=== PATIENT | male | born 1985 | race Caucasian/White ===

== ENCOUNTER 2016-09-22 01:16 | Inpatient (IN) | payer OTHER ==
[~2016-09-22] VITALS: Ht 182.9 cm; Wt 138.4 kg
[2016-09-22] VITALS (13 sets, daily range): BP systolic 115–156; BP diastolic 60–91
--- NOTE | 2016-09-22 07:57 | DIAGNOSTIC IMAGING REPORT ---
PROCEDURE: XR CHEST 1 VIEW INDICATION: SILVA AND HTN TECHNIQUE: Single view chest. 03:34 hours COMPARISON: None. FINDINGS: The cardiomediastinal contour and central vasculature are normal. Low lung volumes. The lungs are clear without focal consolidation, pleural effusion or pneumothorax. The osseous structures are intact. IMPRESSION: 1. No evidence of acute cardiopulmonary disease.
--- NOTE | 2016-09-22 07:57 | DIAGNOSTIC IMAGING REPORT ---
PROCEDURE: XR CHEST 1 VIEW INDICATION: SILAV AND HTN TECHNIQUE: Single view chest. 03:34 hours COMPARISON: None. FINDINGS: The cardiomediastinal contour and central vasculature are normal. Low lung volumes. The lungs are clear without focal consolidation, pleural effusion or pneumothorax. The osseous structures are intact. IMPRESSION: 1. No evidence of acute cardiopulmonary disease.
--- NOTE | 2016-09-22 08:37 | DIAGNOSTIC IMAGING REPORT ---
PROCEDURE: CT HEAD WITHOUT CONTRAST INDICATION: HEADACHE TECHNIQUE: Axial CT images were acquired through the head. Coronal and sagittal reformations were created. COMPARISON: None. FINDINGS: No intracranial hemorrhage or extraaxial fluid collections. Ventricles are normal in size, shape and position. There is no mass, mass effect or midline shift. The huitron-white matter differentiation is normal. There is no edema. The calvarium is intact. The paranasal sinuses and mastoid air cells are normally aerated. The extracranial soft tissues and orbits are normal. IMPRESSION: 1. No CT evidence of acute intracranial process. 2. Preliminary report by Dr. Tony Sebastian of [facility] radiology. All CT scans at this facility use dose modulation, iterative reconstruction, and/or weight-based dosing when appropriate to reduce radiation dose to as low as reasonably achievable.
--- NOTE | 2016-09-22 10:16 | ED ORDER SUMMARY ---
..... Patient: STACY FABIAN OrderSheet [facility] VisitID: [id number] [place] [address] 31y, M Registration Date/Time: 09/22/2016 ORDER SHEET Weight: 131.5 kg (stated) Allergies: No Known Drug Allergy GENERAL ORDERS: Chest 1V Urgent (03:09/22/2016 Jaret PARK) (Ack 3:33 CHagelvis ER Bus And Trolley Inspecting Dispatcher) (3:33 CHagelvis ER Bus And Trolley Inspecting Dispatcher) Signal Worker (Continuous) (03:09/22/2016 Jaret PARK) (3:38 JQuivey R.N.) CBC w Diff Urgent (:09/22/2016 Jaret PARK) (Ack 3:33 CHagelvis ER Bus And Trolley Inspecting Dispatcher) (3:34 JQuivey R.N.) CMP Urgent (03:09/22/2016 Jaret PARK) (Ack 3:33 Izaiah ER Bus And Trolley Inspecting Dispatcher) (3:34 JQuivey R.N.) UA-Culture if indicated Urgent (03:09/22/2016 Jaret PARK) (Ack 3:33 Izaiah ER Bus And Trolley Inspecting Dispatcher) (5:25 JQuivey R.N.) Amylase Urgent (03:09/22/2016 Jaret PARK) (Ack 3:33 CHagelvis ER Bus And Trolley Inspecting Dispatcher) (3:34 JQuivey R.N.) Lipase Urgent (03:09/22/2016 Jaert PARK) (Ack 3:33 Izaiah ER Bus And Trolley Inspecting Dispatcher) (3:34 JQuivey R.N.) CPK Urgent (03:09/22/2016 Jaret PARK) (Ack 3:33 Izaiah ER Bus And Trolley Inspecting Dispatcher) (3:34 JQuivey R.N.) Troponin-I Urgent (03:09/22/2016 Jaret PARK) (Ack 3:33 Izaiah ER Bus And Trolley Inspecting Dispatcher) (3:34 JQuivey R.N.) Oxygen (2 L/min) (NC) (03:09/22/2016 Jaret PARK) (3:37 JQuivey R.N.) Pulse oximeter (03:09/22/2016 Jaret PARK) (3:37 JQuivey R.N.) EKG - ER Stat (03:22 09/22/2016 Jaret PARK) (Ack 3:33 CHagerty ER Bus And Trolley Inspecting Dispatcher) (3:37 JQuivey R.N.) CT Head wo Cont Urgent (04:15 09/22/2016 Jaret PARK) (Ack 4:16 CHagerty ER Bus And Trolley Inspecting Dispatcher) (5:26 JQuivey R.N.) CSF, Cell Count Urgent (07:50 09/22/2016 Jaret PARK) (Ack 7:56 PWeiler ER Tech1) (9:17 JBoardley R.N.) CSF, Culture Urgent (07:50 09/22/2016 Jaret PARK) (Ack 7:56 PWeiler ER Tech1) (9:17 JBoardley R.N.) CSF, Glucose Urgent (07:50 09/22/2016 Jaret PARK) (Ack 7:56 PWeiler ER Tech1) (9:17 JBoardley R.N.) CSF, Protein Urgent (07:50 09/22/2016 Jraet PARK) (Ack 7:56 PWeiler ER Tech1) (9:18 JBoardley R.N.) Blood Culture (No) (N/A) Urgent (09:37 09/22/2016 JBoardlemoody R.N. verbal order read back to Jaret PARK) (Ack 9:39 PWeiler ER Tech1) (9:49 LWhalen R.N.) Lactate, Serum Urgent (09:38 09/22/2016 JBoarlarry R.N. verbal order read back to Jaret PARK) (Ack 9:39 PWeitomás ER Tech1) (9:49 LWhalen R.N.) MEDICATION ORDERS: Zofran ODT PO 4 mg (NOW) (01:40 09/22/2016 VioletaQuivey R.N. per protocol) (1:42 JQuivey R.N.) Metoprolol PO 50 mg (HIGH ALERT MEDICATION, NOW) (03:47 09/22/2016 Jaret PARK) (Ack 3:47 JQuivey R.N.) (3:58 JQuivey R.N.) IV FLUIDS: IV NS : initial bolus 500 mL (1000 mL/hr), then 125 mL/hr for 4h (NOW); Urgent (02:05 09/22/2016 Jaret PARK) (2:16 JQuivey R.N.) Dilaudid IV 1 mg (HIGH ALERT MEDICATION, NOW) (02:05 09/22/2016 Jaret PARK) (2:18 JQuivey R.N.) Zofran IV 4 mg (NOW) (02:16 09/22/2016 JQuivey R.N. verbal order read back to Jaret PARK) (2:17 JQuivey R.N.) IV NS : initial bolus 500 mL (1000 mL/hr), then 125 mL/hr for 4h (NOW); Urgent (03:22 09/22/2016 Jaret PARK) (Cancelled: Duplicate Order3:34 JQuivey R.N.) IV Saline Lock (03:22 09/22/2016 Jaret PARK) (3:35 JQuivey R.N.) Metoprolol IV 2.5 mg (HIGH ALERT MEDICATION, NOW) (03:32 09/22/2016 Jaret PARK) (3:40 JQuivey R.N.) Dilaudid IV 0.5 mg (NOW) (03:44 09/22/2016 JQuivey R.N. verbal order read back to Jaret PARK) (3:44 JQuivey R.N.) Dilaudid IV 0.5 mg (NOW) (04:01 09/22/2016 VioletaQuivey R.N. verbal order read back to Jaret PARK) (4:02 JQuivey R.N.) Toradol IV 30 mg (NOW) (04:17 09/22/2016 Jaret PARK) (4:20 JQuivey R.N.) Dilaudid IV 0.5 mg (NOW) (04:21 09/22/2016 VioletaQuivey R.N. verbal order read back to Jaret PARK) (4:21 JQuivey R.N.) Dilaudid IV 0.5 mg (NOW) (05:26 09/22/2016 VioletaQuivey R.N. verbal order read back to Jaret PARK) (5:26 Nkechi Christopher) Dilaudid IV 1 mg (NOW) (06:56 09/22/2016 Nkechi Christopher verbal order read back to Jaret PARK) (6:58 Nkechi Christopher) Dilaudid IV 1 mg (NOW) (09:34 09/22/2016 Jaret PARK) (9:48 Pradeep Christopher) Ceftriaxone IV 2 gm/50mL (NOW) (09:36 09/22/2016 Marc Christopher verbal order read back to Jaret PARK) (9:49 Pradeep Christopher) Zofran IV 4 mg (NOW) (11:49 09/22/2016 Nighat Christopher verbal order read back to Jaret PARK) (12:19 Nighat Christopher) ORDER SHEET NOTES: [Electronically signed by Jesse Rodríguez R.N. (15:45 09/22/2016)] [Electronically signed by Jairo Faulkner MD (10:41 09/23/2016)] [Electronically locked/signed by Jesse Rodríguez R.N. (15:45 09/22/2016)]
--- NOTE | 2016-09-22 10:16 | ED ORDER SUMMARY ---
..... Patient: STACY FABIAN OrderSheet [facility] VisitID: [id number] [place] [address] 31y, M Registration Date/Time: 09/22/2016 ORDER SHEET Weight: 131.5 kg (stated) Allergies: No Known Drug Allergy GENERAL ORDERS: Chest 1V Urgent (03:09/22/2016 Jaret PARK) (Ack 3:33 CHagelvis ER Oxyacetylene Welder) (3:33 CHagelvis ER Oxyacetylene Welder) Plumbing Service Technician (Continuous) (03:09/22/2016 Jaret PARK) (3:38 JQuivey R.N.) CBC w Diff Urgent (:09/22/2016 Jaret PARK) (Ack 3:33 CHagelvis ER Oxyacetylene Welder) (3:34 JQuivey R.N.) CMP Urgent (03:09/22/2016 Jaret PARK) (Ack 3:33 Izaiah ER Oxyacetylene Welder) (3:34 JQuivey R.N.) UA-Culture if indicated Urgent (03:09/22/2016 Jaret PARK) (Ack 3:33 Izaiah ER Oxyacetylene Welder) (5:25 JQuivey R.N.) Amylase Urgent (03:09/22/2016 Jaret PARK) (Ack 3:33 CHagelvis ER Oxyacetylene Welder) (3:34 JQuivey R.N.) Lipase Urgent (03:09/22/2016 Jaret PARK) (Ack 3:33 Izaiah ER Oxyacetylene Welder) (3:34 JQuivey R.N.) CPK Urgent (03:09/22/2016 Jaret PARK) (Ack 3:33 Izaiah ER Oxyacetylene Welder) (3:34 JQuivey R.N.) Troponin-I Urgent (03:09/22/2016 Jaret PARK) (Ack 3:33 Izaiah ER Oxyacetylene Welder) (3:34 JQuivey R.N.) Oxygen (2 L/min) (NC) (03:09/22/2016 Jaret PARK) (3:37 JQuivey R.N.) Pulse oximeter (03:09/22/2016 Jaret PARK) (3:37 JQuivey R.N.) EKG - ER Stat (03:22 09/22/2016 Jaret PARK) (Ack 3:33 CHagerty ER Oxyacetylene Welder) (3:37 JQuivey R.N.) CT Head wo Cont Urgent (04:15 09/22/2016 Jaret PARK) (Ack 4:16 CHagerty ER Oxyacetylene Welder) (5:26 JQuivey R.N.) CSF, Cell Count Urgent (07:50 09/22/2016 Jaret PARK) (Ack 7:56 PWeiler ER Tech1) (9:17 JBoardley R.N.) CSF, Culture Urgent (07:50 09/22/2016 Jaret PARK) (Ack 7:56 PWeiler ER Tech1) (9:17 JBoardley R.N.) CSF, Glucose Urgent (07:50 09/22/2016 Jaret PARK) (Ack 7:56 PWeiler ER Tech1) (9:17 JBoardley R.N.) CSF, Protein Urgent (07:50 09/22/2016 Jaret PARK) (Ack 7:56 PWeiler ER Tech1) (9:18 JBoardley R.N.) Blood Culture (No) (N/A) Urgent (09:37 09/22/2016 JBoardlemoody R.N. verbal order read back to Jaret PARK) (Ack 9:39 PWeiler ER Tech1) (9:49 LWhalen R.N.) Lactate, Serum Urgent (09:38 09/22/2016 JBoarlarry R.N. verbal order read back to Jaret PARK) (Ack 9:39 PWeitomás ER Tech1) (9:49 LWhalen R.N.) MEDICATION ORDERS: Zofran ODT PO 4 mg (NOW) (01:40 09/22/2016 VioletaQuivey R.N. per protocol) (1:42 JQuivey R.N.) Metoprolol PO 50 mg (HIGH ALERT MEDICATION, NOW) (03:47 09/22/2016 Jaret PARK) (Ack 3:47 JQuivey R.N.) (3:58 JQuivey R.N.) IV FLUIDS: IV NS : initial bolus 500 mL (1000 mL/hr), then 125 mL/hr for 4h (NOW); Urgent (02:05 09/22/2016 Jaret PARK) (2:16 JQuivey R.N.) Dilaudid IV 1 mg (HIGH ALERT MEDICATION, NOW) (02:05 09/22/2016 Jaret PARK) (2:18 JQuivey R.N.) Zofran IV 4 mg (NOW) (02:16 09/22/2016 JQuivey R.N. verbal order read back to Jaret PARK) (2:17 JQuivey R.N.) IV NS : initial bolus 500 mL (1000 mL/hr), then 125 mL/hr for 4h (NOW); Urgent (03:22 09/22/2016 Jaret PARK) (Cancelled: Duplicate Order3:34 JQuivey R.N.) IV Saline Lock (03:22 09/22/2016 Jaret PARK) (3:35 JQuivey R.N.) Metoprolol IV 2.5 mg (HIGH ALERT MEDICATION, NOW) (03:32 09/22/2016 Jaret PARK) (3:40 JQuivey R.N.) Dilaudid IV 0.5 mg (NOW) (03:44 09/22/2016 JQuivey R.N. verbal order read back to Jaret PARK) (3:44 JQuivey R.N.) Dilaudid IV 0.5 mg (NOW) (04:01 09/22/2016 VioletaQuivey R.N. verbal order read back to Jaret PARK) (4:02 JQuivey R.N.) Toradol IV 30 mg (NOW) (04:17 09/22/2016 Jaret PARK) (4:20 JQuivey R.N.) Dilaudid IV 0.5 mg (NOW) (04:21 09/22/2016 VioletaQuivey R.N. verbal order read back to Jaret PARK) (4:21 JQuivey R.N.) Dilaudid IV 0.5 mg (NOW) (05:26 09/22/2016 VioletaQuivey R.N. verbal order read back to Jaret PARK) (5:26 Nkechi Christopher) Dilaudid IV 1 mg (NOW) (06:56 09/22/2016 Nkechi Christopher verbal order read back to Jaret PARK) (6:58 Nkechi Christopher) Dilaudid IV 1 mg (NOW) (09:34 09/22/2016 Jaret PARK) (9:48 Pradeep Christopher) Ceftriaxone IV 2 gm/50mL (NOW) (09:36 09/22/2016 Marc Christopher verbal order read back to Jaret PARK) (9:49 Pradeep Christopher) Zofran IV 4 mg (NOW) (11:49 09/22/2016 Nighat Christopher verbal order read back to Jaret PARK) (12:19 Nighat Christopher) ORDER SHEET NOTES: [Electronically signed by Jesse Rodríguez R.N. (15:45 09/22/2016)] [Electronically signed by Jairo Faulkner MD (10:41 09/23/2016)] [Electronically locked/signed by Jesse Rodríguez R.N. (15:45 09/22/2016)]
--- NOTE | 2016-09-22 10:16 | ED CLINICAL REPORT ---
Clinical Report - Physicians/Mid Levels [facility] [address] [place] [address] 09/22/2016 1:18 Patient: STACY FABIAN Time Seen: 02:04. Arrived- By private vehicle. Historian- patient. HISTORY OF PRESENT ILLNESS Chief Complaint: HEADACHE. Is still present and now worse. This started about 30 hours ago. It was abrupt in onset and has been constant. Onset during light activity. It is described as "pain", pressure, throbbing and sharp. Quality described as unlike previous headaches. Described as a global headache and has had neck pain. At its maximum, severity described as 10 / 10. When seen in the E.D., severity described as 7 / 10. The patient has had blurred vision, photophobia and nausea. No numbness, weakness or vomiting. REVIEW OF SYSTEMS The patient has had chills and experienced sweats. No fever, calf pain, chest pain, cough or difficulty breathing. No pedal edema, palpitations, abdominal pain, constipation or diarrhea. No vomiting or urinary problems. All systems otherwise negative, except as recorded above. PAST HISTORY PCP - JALIL Ayala. No history of sinus problems. Problems: Obstructive Sleep Apnea. Hypertension. Migraine Headache. Additional Surgeries: Adenoidectomy. Surgery for compartment syndrome. Tonsillectomy. Medications: None. Allergies: No Known Drug Allergy. SOCIAL HISTORY Never smoker. Occasional alcohol use. No drug use. Residence: [place]. FAMILY HISTORY Diabetes in grandparent. ADDITIONAL NOTES The nursing notes have been reviewed. PHYSICAL EXAM Vital Signs: 09/22/2016 01:32 BP: 167/111. HR: 102. RR: 17. O2 saturation: 96%. Temp: 98.7 F. Pain level now: 10/10. Have been reviewed. Appearance: Alert. Appears to be in pain. He is morbidly obese. Eyes: Pupils equal, round and reactive to light. Eyes normal inspection. ENT: Pharynx normal. Neck: Moderate meningeal signs present, as evidenced by neck stiffness and nuchal rigidity. Negative Kernig's sign. Normal inspection. No carotid bruit. CVS: Normal heart rate and rhythm. Heart sounds normal. Respiratory: No respiratory distress. Breath sounds normal. Abdomen: Soft and nontender. No organomegaly. Skin: Skin warm and dry. Extremities: Extremities exhibit normal ROM. Neuro: Oriented X 3. Alert. Speech normal. Cranial nerves normal (as tested). No cerebellar findings. No motor deficit. No sensory deficit. LABS, X-RAYS, AND EKG EKG: Rate: 86. Q waves in lead V2 and V3. Prior EKG unavailable. The study has been independently viewed by me. Chest X-ray: Moderately elevated hemidiaphragm on the right. The X-rays were independently viewed by me. CT Head: No acute changes. The study was interpreted by the radiologist and contemporaneously by me. Laboratory Tests: CBC w Diff: (TERRELL: 09/23/2016 05:20) ( [facility] Final results Test Result Flag Units (Reference) WHITE BLOOD COUNT 11.3 K/uL (4.5-11.5) RED BLOOD COUNT 4.82 M/uL (4.50-5.90) HEMOGLOBIN 13.3 L gm/dL (13.5-17.5) HEMATOCRIT 39.3 L % (41.0-53.0) MEAN CELL VOLUME 81 fL (80-100) MEAN CORPUSCULAR HGB 28 pg (26-34) MEAN CORPUSCULAR HGB CONC 34 g/dL (31-37) RED CELL DISTRIBUTION WIDTH 14.2 % (11.6-14.8) PLATELET COUNT 227 K/uL (150-400) NEUTROPHIL % 54.9 % (50-75) LYMPH % 36.4 % (25-40) MONO % 6.7 % (3-14) EOSINOPHIL % 1.5 % (0-4) BASOPHIL % 0.5 % (0-2) CMP: (TERRELL: 09/23/2016 05:20) ( [facility] 09/23/2016 05:54) Final results Test Result Flag Units (Reference) GLUCOSE 104 mg/dL (70-110) BUN 12 mg/dL (7-18) CREATININE 1.1 mg/dL (0.6-1.3) Estimated GFR >60 mL/min Estimated GFR- >60 mL/min Note: Persistent reduction over 3 months in eGFR<60 mL/min/1.73 m2 defines CKD. Patients with eGFR values>=60 mL/min/1.73 m2 may also have CKD if evidence ofpersistent proteinuria. Additional information may be foundat www.kidney.org. SODIUM 139 mmol/L (136-145) POTASSIUM 4.1 mmol/L (3.5-5.1) CHLORIDE 104 mmol/L (98-107) CARBON DIOXIDE 29 mmol/L (21-32) CALCIUM 8.0 L mg/dL (8.5-10.1) TOTAL PROTEIN 6.7 g/dL (6.4-8.2) ALBUMIN 3.8 g/dL (3.3-5.0) BILIRUBIN, TOTAL 0.4 mg/dL (0.0-1.0) ALKALINE PHOSPHATASE 46 U/L (46-116) AST (SGOT) 16 U/L (15-37) ALT (SGPT) 46 U/L (12-78) MAGNESIUM 2.2 mg/dL (1.8-2.4) UA-Culture if indicated: (TERRELL: 09/22/2016 05:20) ( [facility] 09/22/2016 05:36) Final results Test Result Flag Units (Reference) URINE COLOR YELLOW URINE APPEARANCE CLEAR URINE GLUCOSE NEGATIVE (NEGATIVE) URINE BILIRUBIN NEGATIVE (NEGATIVE) URINE KETONE NEGATIVE (NEGATIVE) URINE SPECIFIC GRAVITY 1.025 (1.010-1.030) URINE PH 6.0 (5.0-8.0) URINE PROTEIN NEGATIVE (NEGATIVE) URINE UROBILINOGEN 0.2 EU/dL (0.2-1.0) URINE NITRITE NEGATIVE (NEGATIVE) URINE BLOOD NEGATIVE (NEGATIVE) URINE LEUK ESTERASE NEGATIVE (NEGATIVE) URINE RBC 0-1 rbc/hpf (0-1) URINE WBC 0-1 wbc/hpf (0-1) URINE EPITHELIAL CELLS 0-1 EPI/hpf (0-5) URINE BACTERIA NONE SEEN (NONE SEEN) URINE COMMENT CULT NOT INDICATED URINE CULTURES ARE SET-UP BASED ON THE FOLLOWING CRITERIA:POSITIVE NITRITEPOSITIVE LEUKOCYTE ESTERASEGREATER THAN 10 WHITE BLOOD CELLSMODERATE (2+) OR GREATER BACTERIA CBC w Diff: (TERRELL: 09/22/2016 02:15) ( [facility] 09/22/2016 03:30) Final results Test Result Flag Units (Reference) WHITE BLOOD COUNT 11.8 H K/uL (4.5-11.5) RED BLOOD COUNT 5.52 M/uL (4.50-5.90) HEMOGLOBIN 15.1 gm/dL (13.5-17.5) HEMATOCRIT 44.8 % (41.0-53.0) MEAN CELL VOLUME 81 fL (80-100) MEAN CORPUSCULAR HGB 27 pg (26-34) MEAN CORPUSCULAR HGB CONC 34 g/dL (31-37) RED CELL DISTRIBUTION WIDTH 13.9 % (11.6-14.8) PLATELET COUNT 254 K/uL (150-400) NEUTROPHIL % 68.0 % (50-75) LYMPH % 25.5 % (25-40) MONO % 5.5 % (3-14) EOSINOPHIL % 0.7 % (0-4) BASOPHIL % 0.3 % (0-2) Lactate, Serum: (TERRELL: 09/22/2016 09:49) ( [facility] 09/22/2016 10:33) Final results Test Result Flag Units (Reference) LACTIC ACID 0.7 mmol/L (0.4-2.0) CMP: (TERRELL: 09/22/2016 02:15) ( [facility] 09/22/2016 03:41) Final results Test Result Flag Units (Reference) GLUCOSE 128 H mg/dL (70-110) BUN 12 mg/dL (7-18) CREATININE 0.9 mg/dL (0.6-1.3) Estimated GFR >60 mL/min Estimated GFR- >60 mL/min Note: Persistent reduction over 3 months in eGFR<60 mL/min/1.73 m2 defines CKD. Patients with eGFR values>=60 mL/min/1.73 m2 may also have CKD if evidence ofpersistent proteinuria. Additional information may be foundat www.kidney.org. SODIUM 139 mmol/L (136-145) POTASSIUM 3.9 mmol/L (3.5-5.1) CHLORIDE 103 mmol/L (98-107) CARBON DIOXIDE 26 mmol/L (21-32) CALCIUM 8.7 mg/dL (8.5-10.1) TOTAL PROTEIN 7.7 g/dL (6.4-8.2) ALBUMIN 4.6 g/dL (3.3-5.0) BILIRUBIN, TOTAL 0.8 mg/dL (0.0-1.0) ALKALINE PHOSPHATASE 53 U/L (46-116) AST (SGOT) 23 U/L (15-37) ALT (SGPT) 63 U/L (12-78) LIPASE 112 U/L (73-393) AMYLASE 29 U/L (25-115) CPK 86 U/L (24-260) TROPONIN I <0.05 L ng/mL (0.00-1.5) TROPONIN REFERENCE RANGE:<0.1 NEGATIVE0.1-1.5 INDETERMINANT>1.5 POSITIVE CSF, Cell Count: (TERRELL: 09/22/2016 07:44) ( [facility] 09[facility]27[facility] Final results Test Result Flag Units (Reference) CSF GLUCOSE 59 mg/dL (40-75) CSF PROTEIN 69.0 H mg/dL (15-45) CSF TOTAL VOLUME 4.0 CC TUBE # 4 COLOR COLORLESS APPEARANCE CLEAR CSF WBC 72 H WBC/mm3 (0-5) Results called (WBC'S)Person contacted: SANAZ ANN the result read back? YDate: 09/22/16 Time: 920By: LAB.[facility] CSF RBC 1.8 RBC/mm3 (0-5) CSF SEGMENTED NEUTROPHILS 44 H % (0-7) CSF MONONUCLEAR CELLS 56 % (16-98) CSF, Culture: (TERRELL: 09/22/2016 07:44) ( [facility] 09/23/2016 09:53) IP Test Result Flag Units (Reference) GRAM STAIN, CSF DATE: 09/22/16 NO ORGANISMS SEEN: NO ORGANISMS SEEN WHITE BLOOD CELLS: FEW CULTURE, CSF DATE: 09/23/16 NO GROWTH AT:: NO GROWTH AT 1 DAY PRELIM REPORT: PRELIMINARY REPORT #1 . PROGRESS AND PROCEDURES Lumbar Puncture: Time-out completed immediately before the procedure. Lumbar puncture performed by me. Risks, benefits and alternatives were discussed. Consent was obtained from patient. Sterile technique was used. Local lidocaine anesthesia was used. The area was cleansed with Betadine and chlorhexidine. Patient was positioned right side down. A 22g needle was used. No complications observed. Opening pressure- 35 cm H2O. Course of Care: Patient is stable. Discussed case with health care provider (Luis). Patient/family counseled. Old medical records ordered. Old records unavailable. Disposition: Admitted. CLINICAL IMPRESSION Meningitis. (Electronically signed by Jairo Faulkner MD 09/23/2016 10:41)
--- NOTE | 2016-09-22 10:16 | ED NURSING NOTES ---
Clinical Report - Nurses [facility] [address] [place] [address] 09/22/2016 1:18 Patient: STACY FABIAN TRIAGE Triage time 01:32. Acuity: LEVEL 4. Chief Complaint: HEADACHE. 01:37. Alert. SEPSIS SCREEN: Sepsis Screen. Negative (no infection suspected/documented). --01:37 Valeriy Mejia R.N. 01:32 09/22/16. BP: 167/111. HR: 102. RR: 17. O2 saturation: 96% on room air. Temp: 98.7 F (oral). Pain level now: 01/06. --01:37 Valeriy Mejia R.N. Acuity: LEVEL 3. 04:38. --04:38 Valeriy Mejia R.N. Weight: 131.5 kg stated. Height/Length: 72 inches Per Patient. BMI: 39.4. --01:36 Valeriy Mejia R.N. Medications None. --01:35 Valeriy Mejia R.N. Medication/allergy information source: the patient. --01:37 Valeriy Mejia R.N. Allergies No Known Drug Allergy. --01:35 Valeriy Mejia R.N. History Arrived by private vehicle. Historian: patient. Unaccompanied. [facility] physician ([facility]). This started Started Thursday. Onset was gradual. (started like a Migraine now pain is worse). Treatment PUBLIC RELATIONS REPRESENTATIVE: (Exedrin Migraine). PAST MEDICAL HX: Immunizations: up-to-date. SOCIAL HX: Former smoker, end date 2006. Occasional alcohol use. No drug use. No recent travel. No infectious disease exposure. ABUSE ASSESSMENT: No report of abuse. FALL RISK ASSESSMENT: Fall risk assessment completed. No fall risk identified. NUTRITIONAL RISK ASSESSMENT: The nutritional risk assessment revealed no deficiencies. FUNCTIONAL ASSESSMENT: Functional assessment: no impairments noted. LEARNING NEEDS ASSESSMENT: The learning needs assessment revealed no barriers. SKIN INTEGRITY ASSESSMENT: Skin integrity risk assessment completed. No skin integrity risk identified. --01:37 Valeriy Mejia R.N. PROBLEMS: Migraine Headache. --01:36 Valeriy Mejia R.N. ADDITIONAL SURGERIES: Adenoidectomy. Surgery for compartment syndrome. Tonsillectomy. --01:36 Valeriy Mejia R.N. Interventions ID band on patient. To treatment room. --01:37 Valeriy Mejia R.N. PHYSICAL ASSESSMENT 01:38. Ambulatory to room. GENERAL / NEURO / PSYCH: Alert. Oriented X 4. Speech within normal limits. HEENT: No facial asymmetry noted. RESPIRATORY: Respirations not labored. SKIN: Skin is warm and dry. --01:38 Valeriy Mejia R.N. NURSING PROGRESS NOTES 01:38. Head of bed elevated. Two patient identifiers checked. Call light placed in reach. Bed placed in lowest position. Brakes of bed on. Patient ready for evaluation- chart flagged. --01:38 Valeriy Mejia R.N. 01:42 09/22/2016 Zofran ODT (Ondansetron) PO 4 mg given. Allergies verified and confirmed 5 rights. --01:42 Valeriy Mejia R.N. 02:11 09/22/2016 Site #1 started via IV in the right antecubital space with an 20g angiocath, with aseptic technique and good blood return; one attempt. Blood drawn: rainbow set. Labeled in the presence of the patient and sent to the lab. --02:16 Valeriy Mejia R.N. 02:13 09/22/2016 Started bag #1 1000 mL IV Fluids IV NS (Saline); at 1000 mL/hr over 30 minute(s) via site #1 --02:16 Valeriy Mejia R.N. 02:15 09/22/2016 Zofran (Ondansetron HCl) IVP 4 mg given over 2 minute(s) via site #1. Allergies verified and confirmed 5 rights. IV patency established. IV site checked: no pain, redness, or swelling. IV flushed thoroughly pre- and post-medication administration. --02:17 Valeriy Mejia R.N. 02:18 09/22/2016 Dilaudid (HYDROmorphone HCl PF) IVP 1 mg given over 2 minute(s) via site #1. Allergies verified, confirmed 5 rights and sedative warning given to the patient. IV patency established. IV site checked: no pain, redness, or swelling. IV flushed thoroughly pre- and post-medication administration. --02:18 Valeriy Mejia R.N. 02:20. Pulse oximeter placed on patient; monitor alarms on. --02:20 Valeriy Mejia R.N. The patient is calm and resting quietly. GENERAL / NEURO / PSYCH: Alert. Oriented X 4. RESPIRATORY: No respiratory distress. SKIN: Skin is warm and dry. Skin color within normal limits. --03:18 Valeriy Mejia R.N. 03:17 09/22/16. BP: 170/114. HR: 92. RR: 16. O2 saturation: 97% on room air. Pain level now: 11/06. --03:18 Valeriy Mejia R.N. 02:46 09/22/2016 IV Fluids IV NS via IV site #1 Rate Changed: bag #1 decreased to 125 mL/hr via IV pump. IV patency established. IV site checked: no pain, redness, or swelling. IV flushed thoroughly. --03:29 Valeriy Mejia R.N. 03:38. Oxygen administered by nasal cannula at 2 liters. --03:38 Valeriy Mejia R.N. 03:38. earth science teacher and NIBP monitor placed on patient; monitor alarms on. --03:38 Valeriy Mejia R.N. 03:36 09/22/2016 Metoprolol (Metoprolol Tartrate) IVP 2.5 mg given over 3 minute(s) via site #1. --03:40 Valeriy Mejia R.N. 03:41 09/22/16. BP: 159/94. HR: 85. RR: 16. O2 saturation: 100% on nasal cannula at 2 liters/minute. --03:44 Valeriy Mejia R.N. Cardiac rhythm: normal sinus rhythm. --03:44 Valeriy Mejia R.N. 03:42 09/22/2016 Dilaudid (HYDROmorphone HCl PF) IVP 0.5 mg given over 2 minute(s) via site #1. Allergies verified and confirmed 5 rights. IV patency established. IV site checked: no pain, redness, or swelling. IV flushed thoroughly pre- and post-medication administration. --03:44 Valeriy Mejia R.N. 03:56 09/22/2016 Metoprolol PO 50 mg given. Allergies verified and confirmed 5 rights. --03:58 Valeriy Mejia R.N. 04:01 09/22/2016 Dilaudid (HYDROmorphone HCl PF) IVP 0.5 mg given over 2 minute(s) via site #1. Allergies verified and confirmed 5 rights. IV patency established. IV site checked: no pain, redness, or swelling. IV flushed thoroughly pre- and post-medication administration. --04:02 Valeriy Mejia R.N. EKG time: (03:38). EKG was performed by a tech and shown to the ED physician. --04:08 Loreta Rojas 04:17 09/22/2016 Toradol IVP 30 mg given over 2 minute(s) via site #1. Allergies verified and confirmed 5 rights. IV patency established. IV site checked: no pain, redness, or swelling. IV flushed thoroughly pre- and post-medication administration. --04:20 Valeriy Mejia R.N. 04:19 09/22/2016 Dilaudid (HYDROmorphone HCl PF) IVP 0.5 mg given over 2 minute(s) via site #1. Allergies verified and confirmed 5 rights. IV patency established. IV site checked: no pain, redness, or swelling. IV flushed thoroughly pre- and post-medication administration. --04:21 Valeriy Mejia R.N. 04:32. Patient transported to CT by stretcher with tech. --04:40 Valeriy Mejia R.N. 04:39. Patient returned from CT by stretcher with tech. --04:40 Valeriy Mejia R.N. 05:17 Patient to restroom to collect urine sample. --05:17 Valeriy Mejia R.N. 05:20. Patient ID band checked for patient name and birthdate: patient confirmed. Clean catch urine collected with return of josue-colored urine; sample sent to lab for urinalysis. Specimen labeled in the presence of the patient. --05:25 Valeriy Mejia R.N. Cardiac rhythm: normal sinus rhythm. The patient is calm and resting quietly. GENERAL / NEURO / PSYCH: Alert. Oriented X 4. RESPIRATORY: No respiratory distress. SKIN: Skin is warm and dry. Skin color within normal limits. --05:25 Valeriy Mejia R.N. 05:25 09/22/16. BP: 136/90. HR: 66. RR: 13. O2 saturation: 100% on nasal cannula at 2 liters/minute. Pain level now: 07/07. --05:25 Valeriy Mejia R.N. 05:24 09/22/2016 Dilaudid (HYDROmorphone HCl PF) IVP 0.5 mg given over 2 minute(s) via site #1. Allergies verified, confirmed 5 rights and sedative warning given to the patient. IV patency established. IV site checked: no pain, redness, or swelling. IV flushed thoroughly pre- and post-medication administration. --05:26 Valeriy Mejia R.NReilly 05:43 by [facility], operated by [facility]. LUMBAR PUNCTURE: Preparation: lumbar puncture tray set up. --05:56 Valeriy Mejia R.N. 06:32 09/22/16. BP: 123/87. HR: 66. RR: 14. O2 saturation: 100% on nasal cannula at 2 liters/minute. Pain level now: 05/09. --06:33 Valeriy Mejia R.N. Cardiac rhythm: normal sinus rhythm. The patient is calm and resting quietly. GENERAL / NEURO / PSYCH: Alert. Oriented X 4. RESPIRATORY: No respiratory distress. SKIN: Skin is warm and dry. Skin color within normal limits. --06:33 Valeriy Mejia R.N. 06:55 09/22/2016 Dilaudid (HYDROmorphone HCl PF) IVP 1 mg given over 2 minute(s) via site #1. Allergies verified, confirmed 5 rights and sedative warning given to the patient and patient's family. IV patency established. IV site checked: no pain, redness, or swelling. IV flushed thoroughly pre- and post-medication administration. --06:58 Valeriy Mejia R.N. 07:22. Care transferred and report given (Israel Morton EDRN). --07:22 Valeriy Mejia R.N. LUMBAR PUNCTURE: Lumbar puncture performed by ED physician. Assisted by one nurse. Preparation: consent obtained per patient, lumbar puncture tray set up and patient positioned on left side. Procedure: 22g spinal needle used. One attempt. Procedure successful. CSF specimens sent to lab. Post-procedure: patient tolerated the procedure well. Patient instructed to lie flat. Total time of assist / procedure: 30 minutes. --07:57 Jesse Rodríguez R.N. 07:57 09/22/16. BP: 113/78. HR: 65. RR: 16. O2 saturation: 94%. Temp: 98.4 F. Pain level now 3/10. --07:57 Jesse Rodríguez R.N. 09:21 09/22/16. Cardiac rhythm: normal sinus rhythm. --09:21 Joshua Cote R.N. 09:20 09/22/16. BP: 131/83. HR: 63. RR: 15. O2 saturation: 100% on room air. --09:21 Joshua Cote R.N. Critical value relayed to ED by Lab. Critical value received by Joshua ARRIOLA. 72, CSF WBC. --09:25 Joshua Cote R.N. ED physician and charge nurse notifed of critical value. --09:25 Joshua Cote R.N. late entry -09:25. ( 0925-Placed patient in isolation precautions due to lab results, new orders received from ). --09:42 Joshua Cote R.N. 09:48 09/22/2016 Dilaudid (HYDROmorphone HCl PF) IVP 1 mg given over 2 minute(s) via site #1. Allergies verified, confirmed 5 rights and sedative warning given to the patient and patient's family. IV patency established. IV site checked: no pain, redness, or swelling. IV flushed thoroughly pre- and post-medication administration. --09:48 Jesse Rodríguez R.N. 09:49 09/22/2016 Started 2 gm of Ceftriaxone IVPB in bag #1 50 mL; at 150 mL/hr over 2 minute(s) via site #1 via IV pump. Allergies verified and confirmed 5 rights. IV patency established. IV site checked: no pain, redness, or swelling. IV flushed thoroughly pre- and post-medication administration. --09:49 Jesse Rodríguez R.N. 09:50 09/22/16. BP: 131/83. HR: 74. RR: 18. O2 saturation: 97%. Temp: 98.6 F. Pain level now 10/06. --09:50 Jesse Rodríguez R.N. 09:20 09/22/16. BP: 131/83. HR: 63. RR: 15. O2 saturation: 100% on room air. 08:45 09/22/16. BP: 140/80. HR: 72. RR: 12. O2 saturation: 96%. 08:15 09/22/16. BP: 121/77. HR: 73. RR: 16. O2 saturation: 96%. 07:57 09/22/16. BP: 113/78. HR: 65. RR: 16. O2 saturation: 94%. Temp: 98.4 F. Pain level now 10. --09:53 Jesse Rodríguez R.N. <<STRICKEN ENTRY-- 11:46 09/22/2016 Zofran (Ondansetron HCl) IVP 4 mg given over 2 minute(s) via site #1. Allergies verified and confirmed 5 rights. IV patency established. IV site checked: no pain, redness, or swelling. IV flushed thoroughly pre- and post-medication administration. IVP given by RN (maintaining isolation precautions during administration). --12:01 Julia Tate R.N. --END STRIKE>> Correction. --12:17 Julia Tate R.N. <<STRICKEN ENTRY-- 11:48 09/22/2016 Zofran (Ondansetron HCl) IVP 4 mg given over 2 minute(s) via site #1. Allergies verified and confirmed 5 rights. IV patency established. IV site checked: no pain, redness, or swelling. IV flushed thoroughly pre- and post-medication administration. IVP given by RN (maintaining isolations precautions). --12:14 Julia Tate R.N. --END STRIKE>> Correction. now charted twice --12:15 Julia Tate R.N. 11:54 09/22/2016 Zofran (Ondansetron HCl) IVP 4 mg given over 2 minute(s) via site #1. Allergies verified and confirmed 5 rights. IV patency established. IV site checked: no pain, redness, or swelling. IV flushed thoroughly pre- and post-medication administration. IVP given by RN (maintaining isolation precautions). --12:19 Julia Tate R.N. 12:00 09/22/16. BP: 135/76. HR: 82. RR: 20. O2 saturation: 97%. 11:00 09/22/16. BP: 151/90. HR: 71. RR: 16. O2 saturation: 95%. 10:00 09/22/16. BP: 135/91. HR: 75. RR: 16. O2 saturation: 97%. 09:50 09/22/16. BP: 131/83. HR: 74. RR: 18. O2 saturation: 97%. Temp: 98.6 F. Pain level now 710. --12:55 Jesse Rodríguez R.N. 12:30 09/22/16. ( Report given to Jeison ARRIOLA.). --12:56 Jesse Rodríguez R.N. DISPOSITION / DISCHARGE <<STRICKEN ENTRY-- 06:09 09/22/2016 Site #1 removed upon discharge. Catheter intact. Bandage applied. --06:13 Vaelriy Mejia R.N. --END STRIKE>> Charted on wrong patient. --06:58 Valeriy Mejia R.N. <<STRICKEN ENTRY-- Departure time: 06:19. Condition at departure: stable. No learning barriers present. Discharge instructions provided and reviewed with the patient. Patient verbalized understanding. Written instructions provided in Omani. The patient was discharged home and unaccompanied at time of discharge. He left the Emergency Department ambulatory and via bus and with fare provided. FALL RISK ASSESSMENT: Fall risk assessment completed. No fall risk identified. --06:21 Valeriy Mejia R.N. --END STRIKE>> Charted On Wrong Patient --06:22 Valeriy Mejia R.N. <<STRICKEN ENTRY-- 06:12 09/22/16. BP: 144/83. HR: 84. RR: 16. O2 saturation: 97% on room air. Pain level now: 0/10. --06:21 Valeriy Mejia R.N. --END STRIKE>> Charted on wrong patient. --06:22 Valeriy Mejia R.N. 12:00 09/22/16. BP: 135/76. HR: 82. RR: 20. O2 saturation: 97%. --12:57 Jesse Rodríguez R.N. Departure time: 12:40 Sep 22 2016. Admitted to the Critical Care Unit (305). --12:57 Jesse Rodríguez R.N. 02:58 09/22/2016 IV Fluids IV NS Discontinued: bag #1 infused. Total amount infused: 0500 mL. IV patency established. IV site checked: no pain, redness, or swelling. IV flushed thoroughly. --12:58 Jesse Rodríguez R.N. 10:40 09/22/2016 Ceftriaxone IVPB Discontinued: bag #1 infused. Total amount infused: 50 mL. IV patency established. IV site checked: no pain, redness, or swelling. IV flushed thoroughly. --12:57 Jesse Rodríguez R.N. 11:58 09/22/2016 Site #[address] upon admission; patent. Good blood return present. Converted to saline lock and flushed with 10 mL saline. --12:58 Jesse Rodríguez R.N. Locked/Released at 09/22/2016 15:45 by Jesse Rodríguez R.N.
--- NOTE | 2016-09-22 10:16 | ED CLINICAL REPORT ---
Clinical Report - Physicians/Mid Levels [facility] [address] [place] [address] 09/22/2016 1:18 Patient: STACY FABIAN Time Seen: 02:04. Arrived- By private vehicle. Historian- patient. HISTORY OF PRESENT ILLNESS Chief Complaint: HEADACHE. Is still present and now worse. This started about 30 hours ago. It was abrupt in onset and has been constant. Onset during light activity. It is described as "pain", pressure, throbbing and sharp. Quality described as unlike previous headaches. Described as a global headache and has had neck pain. At its maximum, severity described as 10 / 10. When seen in the E.D., severity described as 7 / 10. The patient has had blurred vision, photophobia and nausea. No numbness, weakness or vomiting. REVIEW OF SYSTEMS The patient has had chills and experienced sweats. No fever, calf pain, chest pain, cough or difficulty breathing. No pedal edema, palpitations, abdominal pain, constipation or diarrhea. No vomiting or urinary problems. All systems otherwise negative, except as recorded above. PAST HISTORY PCP - JALIL Ayala. No history of sinus problems. Problems: Obstructive Sleep Apnea. Hypertension. Migraine Headache. Additional Surgeries: Adenoidectomy. Surgery for compartment syndrome. Tonsillectomy. Medications: None. Allergies: No Known Drug Allergy. SOCIAL HISTORY Never smoker. Occasional alcohol use. No drug use. Residence: [place]. FAMILY HISTORY Diabetes in grandparent. ADDITIONAL NOTES The nursing notes have been reviewed. PHYSICAL EXAM Vital Signs: 09/22/2016 01:32 BP: 167/111. HR: 102. RR: 17. O2 saturation: 96%. Temp: 98.7 F. Pain level now: 10/10. Have been reviewed. Appearance: Alert. Appears to be in pain. He is morbidly obese. Eyes: Pupils equal, round and reactive to light. Eyes normal inspection. ENT: Pharynx normal. Neck: Moderate meningeal signs present, as evidenced by neck stiffness and nuchal rigidity. Negative Kernig's sign. Normal inspection. No carotid bruit. CVS: Normal heart rate and rhythm. Heart sounds normal. Respiratory: No respiratory distress. Breath sounds normal. Abdomen: Soft and nontender. No organomegaly. Skin: Skin warm and dry. Extremities: Extremities exhibit normal ROM. Neuro: Oriented X 3. Alert. Speech normal. Cranial nerves normal (as tested). No cerebellar findings. No motor deficit. No sensory deficit. LABS, X-RAYS, AND EKG EKG: Rate: 86. Q waves in lead V2 and V3. Prior EKG unavailable. The study has been independently viewed by me. Chest X-ray: Moderately elevated hemidiaphragm on the right. The X-rays were independently viewed by me. CT Head: No acute changes. The study was interpreted by the radiologist and contemporaneously by me. Laboratory Tests: CBC w Diff: (TERRELL: 09/23/2016 05:20) ( [facility] 09/23/2016 05:37) Final results Test Result Flag Units (Reference) WHITE BLOOD COUNT 11.3 K/uL (4.5-11.5) RED BLOOD COUNT 4.82 M/uL (4.50-5.90) HEMOGLOBIN 13.3 L gm/dL (13.5-17.5) HEMATOCRIT 39.3 L % (41.0-53.0) MEAN CELL VOLUME 81 fL (80-100) MEAN CORPUSCULAR HGB 28 pg (26-34) MEAN CORPUSCULAR HGB CONC 34 g/dL (31-37) RED CELL DISTRIBUTION WIDTH 14.2 % (11.6-14.8) PLATELET COUNT 227 K/uL (150-400) NEUTROPHIL % 54.9 % (50-75) LYMPH % 36.4 % (25-40) MONO % 6.7 % (3-14) EOSINOPHIL % 1.5 % (0-4) BASOPHIL % 0.5 % (0-2) CMP: (TERRELL: 09/23/2016 05:20) ( [facility] 09/23/2016 05:54) Final results Test Result Flag Units (Reference) GLUCOSE 104 mg/dL (70-110) BUN 12 mg/dL (7-18) CREATININE 1.1 mg/dL (0.6-1.3) Estimated GFR >60 mL/min Estimated GFR- >60 mL/min Note: Persistent reduction over 3 months in eGFR<60 mL/min/1.73 m2 defines CKD. Patients with eGFR values>=60 mL/min/1.73 m2 may also have CKD if evidence ofpersistent proteinuria. Additional information may be foundat www.kidney.org. SODIUM 139 mmol/L (136-145) POTASSIUM 4.1 mmol/L (3.5-5.1) CHLORIDE 104 mmol/L (98-107) CARBON DIOXIDE 29 mmol/L (21-32) CALCIUM 8.0 L mg/dL (8.5-10.1) TOTAL PROTEIN 6.7 g/dL (6.4-8.2) ALBUMIN 3.8 g/dL (3.3-5.0) BILIRUBIN, TOTAL 0.4 mg/dL (0.0-1.0) ALKALINE PHOSPHATASE 46 U/L (46-116) AST (SGOT) 16 U/L (15-37) ALT (SGPT) 46 U/L (12-78) MAGNESIUM 2.2 mg/dL (1.8-2.4) UA-Culture if indicated: (TERRELL: 09/22/2016 05:20) ( MsgRcvd 09/22/2016 05:36) Final results Test Result Flag Units (Reference) URINE COLOR YELLOW URINE APPEARANCE CLEAR URINE GLUCOSE NEGATIVE (NEGATIVE) URINE BILIRUBIN NEGATIVE (NEGATIVE) URINE KETONE NEGATIVE (NEGATIVE) URINE SPECIFIC GRAVITY 1.025 (1.010-1.030) URINE PH 6.0 (5.0-8.0) URINE PROTEIN NEGATIVE (NEGATIVE) URINE UROBILINOGEN 0.2 EU/dL (0.2-1.0) URINE NITRITE NEGATIVE (NEGATIVE) URINE BLOOD NEGATIVE (NEGATIVE) URINE LEUK ESTERASE NEGATIVE (NEGATIVE) URINE RBC 0-1 rbc/hpf (0-1) URINE WBC 0-1 wbc/hpf (0-1) URINE EPITHELIAL CELLS 0-1 EPI/hpf (0-5) URINE BACTERIA NONE SEEN (NONE SEEN) URINE COMMENT CULT NOT INDICATED URINE CULTURES ARE SET-UP BASED ON THE FOLLOWING CRITERIA:POSITIVE NITRITEPOSITIVE LEUKOCYTE ESTERASEGREATER THAN 10 WHITE BLOOD CELLSMODERATE (2+) OR GREATER BACTERIA CBC w Diff: (TERRELL: 09/22/2016 02:15) ( [facility] 09/22/2016 03:30) Final results Test Result Flag Units (Reference) WHITE BLOOD COUNT 11.8 H K/uL (4.5-11.5) RED BLOOD COUNT 5.52 M/uL (4.50-5.90) HEMOGLOBIN 15.1 gm/dL (13.5-17.5) HEMATOCRIT 44.8 % (41.0-53.0) MEAN CELL VOLUME 81 fL (80-100) MEAN CORPUSCULAR HGB 27 pg (26-34) MEAN CORPUSCULAR HGB CONC 34 g/dL (31-37) RED CELL DISTRIBUTION WIDTH 13.9 % (11.6-14.8) PLATELET COUNT 254 K/uL (150-400) NEUTROPHIL % 68.0 % (50-75) LYMPH % 25.5 % (25-40) MONO % 5.5 % (3-14) EOSINOPHIL % 0.7 % (0-4) BASOPHIL % 0.3 % (0-2) Lactate, Serum: (TERRELL: 09/22/2016 09:49) ( [facility] 09/22/2016 10:33) Final results Test Result Flag Units (Reference) LACTIC ACID 0.7 mmol/L (0.4-2.0) CMP: (TERRELL: 09/22/2016 02:15) ( [facility] 09/22/2016 03:41) Final results Test Result Flag Units (Reference) GLUCOSE 128 H mg/dL (70-110) BUN 12 mg/dL (7-18) CREATININE 0.9 mg/dL (0.6-1.3) Estimated GFR >60 mL/min Estimated GFR- >60 mL/min Note: Persistent reduction over 3 months in eGFR<60 mL/min/1.73 m2 defines CKD. Patients with eGFR values>=60 mL/min/1.73 m2 may also have CKD if evidence ofpersistent proteinuria. Additional information may be foundat www.kidney.org. SODIUM 139 mmol/L (136-145) POTASSIUM 3.9 mmol/L (3.5-5.1) CHLORIDE 103 mmol/L (98-107) CARBON DIOXIDE 26 mmol/L (21-32) CALCIUM 8.7 mg/dL (8.5-10.1) TOTAL PROTEIN 7.7 g/dL (6.4-8.2) ALBUMIN 4.6 g/dL (3.3-5.0) BILIRUBIN, TOTAL 0.8 mg/dL (0.0-1.0) ALKALINE PHOSPHATASE 53 U/L (46-116) AST (SGOT) 23 U/L (15-37) ALT (SGPT) 63 U/L (12-78) LIPASE 112 U/L (73-393) AMYLASE 29 U/L (25-115) CPK 86 U/L (24-260) TROPONIN I <0.05 L ng/mL (0.00-1.5) TROPONIN REFERENCE RANGE:<0.1 NEGATIVE0.1-1.5 INDETERMINANT>1.5 POSITIVE CSF, Cell Count: (TERRELL: 09/22/2016 07:44) ( [facility] 09/22/2016 09:27) Final results Test Result Flag Units (Reference) CSF GLUCOSE 59 mg/dL (40-75) CSF PROTEIN 69.0 H mg/dL (15-45) CSF TOTAL VOLUME 4.0 CC TUBE # 4 COLOR COLORLESS APPEARANCE CLEAR CSF WBC 72 H WBC/mm3 (0-5) Results called (WBC'S)Person contacted: SANAZ ANN the result read back? YDate: 09/22/16 Time: 920By: LAB.[facility] CSF RBC 1.8 RBC/mm3 (0-5) CSF SEGMENTED NEUTROPHILS 44 H % (0-7) CSF MONONUCLEAR CELLS 56 % (16-98) CSF, Culture: (TERRELL: 09/22/2016 07:44) ( [facility] 09/23/2016 09:53) IP Test Result Flag Units (Reference) GRAM STAIN, CSF DATE: 09/22/16 NO ORGANISMS SEEN: NO ORGANISMS SEEN WHITE BLOOD CELLS: FEW CULTURE, CSF DATE: 09/23/16 NO GROWTH AT:: NO GROWTH AT 1 DAY PRELIM REPORT: PRELIMINARY REPORT #1 . PROGRESS AND PROCEDURES Lumbar Puncture: Time-out completed immediately before the procedure. Lumbar puncture performed by me. Risks, benefits and alternatives were discussed. Consent was obtained from patient. Sterile technique was used. Local lidocaine anesthesia was used. The area was cleansed with Betadine and chlorhexidine. Patient was positioned right side down. A 22g needle was used. No complications observed. Opening pressure- 35 cm H2O. Course of Care: Patient is stable. Discussed case with health care provider (Luis). Patient/family counseled. Old medical records ordered. Old records unavailable. Disposition: Admitted. CLINICAL IMPRESSION Meningitis. (Electronically signed by Jairo Faulkner MD 09/23/2016 10:41)
--- NOTE | 2016-09-22 15:12 | History & Physical Report ---
Information Source Information Source: Self, Spouse/Partner Reliability: Fair History Chief Complaint Headache and neck pain History of Present Illness Patient is a 31-year-old male with a history of migraines is presenting with a waxing and waning presentation of headache and neck pain. Patient previously had a history of migraines which was then found to be attributed to obstructive sleep apnea. The migraines are primarily along the temporal region of his head and with radiation to the occipital portion. Patient after being placed on CPAP had no recurrence of the headaches ever mentioned. Patient had been in his usual state of health for the past couple of months when he noticed last week and that he had excruciating headache. The distribution of the headache was completely different presentation than previous times. This was more left located in the central part of his head with extension into the occiput. The pain he describes was 10 over 10 intensity. Had no alleviating or exacerbating factors, and has a presentation of a dull sensation that is overbearing. Patient additionally has difficulty turning his head, and that every time he does he developed very severe neck pain and he feels as if his neck is more rigid than usual. Patient's pain dissipated throughout the week however this Thursday A came back worse than before. Currently patient is experiencing again 10 out of 10 pain in the central part of his head with radiation to the occiput. Patient presented to the ED was seen to be in this degree of pain a CT scan was obtained of the head which did not reveal any sort of acute abnormality. Patient then had a spinal tap done which revealed elevated white blood cell count and elevated protein. Patient has had no sick contacts except for a child with ear infection and cold. Patient has no other exposures to infectious material or noxious material that may be contributing to this. Patient is otherwise stable with no other complaints at the moment. Patient History 1. Meningitis, aseptic 2. 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 He currently lives at home with his . He drinks socially, approximately once a week. Patient does not smoke, and is a lifelong nonsmoker. Patient does not use any illicit substances. Patient manages all his ADLs independently. Family History Family history was reviewed; no changes noted. Advance Directive None Medications and Allergies Medications Home meds None Current Medications Sig/Shekhar Start time Last Medication Dose Route Stop Time Status Admin Pantoprazole Sodium 40 MG DAILY@0600 09/23 0600 AC Sesquihydrate PO Acetaminophen 650 MG Q6H PRN 09/22 1500 UNV PO Ondansetron HCl 4 MG Q4H PRN 09/22 1445 AC 09/22 IV 1503 Dextrose/Water 500 ML ASDIRECTED 09/22 1100 AC IV Diazepam 2.5 MG Q3H PRN 09/22 1100 AC PO Hydromorphone HCl See Dose .[SEE DOSE INSTRUC.. 09/22 1100 AC 09/22 Insts (1) IV 1448 Ketorolac 30 MG Q6H PRN 09/22 1100 AC 09/22 Tromethamine IV 1502 Naloxone HCl 0.4 MG PRN PRN 09/22 1100 AC IV Sodium Chloride 1,000 ML ASDIRECTED 09/22 1100 AC 09/22 IV 1228 Dose Instructions: (1)Hydromorphone HCl: [employer] CHARTING UNIT = ML BOLUS = DOSE = LOCKOUT = 4 HR LIMIT = CONTINUOUS = Allergies Coded Allergies: No Known Drug Allergy (09/22/16) Review of Systems Constitutional Denies: Fever, Chills, Sweats, Weakness, Malaise, Other. Eyes Other (photosensitivity ). Denies: Pain, Vision Change, Conjunctival Inflammation, Eyelid Inflammation, Redness. ENT Denies: Ear Pain, Ear Discharge, Nose Pain, Nasal Discharge, Nasal Congestion, Mouth Pain, Mouth Swelling, Throat Pain, Throat Swelling, Other. Respiratory Denies: Cough, Dry, SOB w/exertion, Wheezing, Hemoptysis, Pleuritic Pain, Sputum , Other. Cardiovascular Denies: Chest Pain, Palpitations, Orthopnea, PND, Edema, Light-headedness, Other. Gastrointestinal Nausea. Denies: Vomiting, Abdominal Pain, Diarrhea, Constipation, Melena, Hematochezia, Other. Genitourinary Denies: Dysuria, Frequency, Incontinence, Hematuria, Retention, Other. Musculoskeletal Neck Pain. Denies: Shoulder Pain, Arm Pain, Back Pain, Hand Pain, Leg Pain, Foot Pain, Other. Skin Denies: Rash, Lesions, Jaundice, Bruising, Other. Neurological Other (headache ). Physical Exam Vital Signs / I&Os Vital Signs Date Time Temp Pulse Resp B/P Pulse O2 O2 Flow FiO2 Ox Delivery Rate 09/22 1450 99.0 82 16 132/60 98 Nasal 2.0 Cannula 09/22 1300 85 21 140/85 100 09/22 1215 99.1 82 21 145/89 100 Nasal 2.0 Cannula General Appearance Alert, Oriented X3, No acute distress HEENT Atraumatic, PERRLA, Moist mucous membranes, sinus tenderness no trauma noted Lungs Clear to auscultation Neck Supple, No masses, No thyromegaly, No lymphadenopathy, - no wilma stiffness - pain on rotation Cardiovascular Regular rate and rhythm, Normal S1 and S2, No murmurs, gallops, rubs Abdomen Soft, No tenderness, No rebound Rectal No hemorrhoids Extremities No cyanosis, No clubbing, Normal pulses, No tenderness, Yudi's sign negative Skin No Rashes, No Breakdown, No Significant Lesions Neurological Normal speech, Normal tone, Sensation intact, Reflexes 2+ and equal , Cranial nerves intact, Strength 5/5 x4 ext's, No lateralizing signs Psych/Mental Status Mood normal LAB Results Laboratory Tests 09/22 09/22 09/22 0215 0520 0744 Chemistry Plasma Sodium (136 - 145 mmol/L) 139 Plasma Potassium (3.5 - 5.1 mmol/L) 3.9 Plasma Chloride (98 - 107 mmol/L) 103 CO2 (Enzymatic) (21 - 32 mmol/L) 26 BUN (7 - 18 mg/dL) 12 Creatinine (0.6 - 1.3 mg/dL) 0.9 Est GFR ( Amer) (mL/min) >60 Est GFR (Non-Af Amer) (mL/min) >60 Glucose (70 - 110 mg/dL) 128 Plasma Calcium (8.5 - 10.1 mg/dL) 8.7 Total Bilirubin (0.0 - 1.0 mg/dL) 0.8 AST (15 - 37 U/L) 23 ALT (12 - 78 U/L) 63 Alkaline Phosphatase (46 - 116 U/L) 53 Creatine Kinase (24 - 260 U/L) 86 Troponin (0.00 - 1.5 ng/mL) <0.05 Total Protein (6.4 - 8.2 g/dL) 7.7 Albumin (3.3 - 5.0 g/dL) 4.6 Amylase (25 - 115 U/L) 29 Lipase (73 - 393 U/L) 112 Hematology WBC (4.5 - 11.5 K/uL) 11.8 RBC (4.50 - 5.90 M/uL) 5.52 Hgb (13.5 - 17.5 gm/dL) 15.1 Hct (41.0 - 53.0 %) 44.8 MCV (80 - 100 fL) 81 MCH (26 - 34 pg) 27 RDW (11.6 - 14.8 %) 13.9 Neut % (Auto) (50 - 75 %) 68.0 Lymph % (Auto) (25 - 40 %) 25.5 [place] % (Auto) (3 - 14 %) 5.5 Eos % (Auto) (0 - 4 %) 0.7 Baso % (Auto) (0 - 2 %) 0.3 Plt Count, EDTA (150 - 400 K/uL) 254 PUBS MCHC (31 - 37 g/dL) 34 Other Body Source CSF Tube Number 4 CSF Volume (CC) 4.0 CSF Appearance CLEAR CSF Color COLORLESS CSF WBC (0 - 5 WBC/mm3) 72 CSF RBC (0 - 5 RBC/mm3) 1.8 CSF Mononuclear Cells (16 - 98 %) 56 CSF Seg Neutrophils (0 - 7 %) 44 CSF Glucose (40 - 75 mg/dL) 59 CSF Total Protein (15 - 45 mg/dL) 69.0 Urines Urine Color YELLOW Urine Appearance CLEAR Urine pH (5.0 - 8.0) 6.0 Ur Specific [place] (1.010 - 1.030) 1.025 Urine Protein (NEGATIVE) NEGATIVE Urine Ketones (NEGATIVE) NEGATIVE Urine Blood (NEGATIVE) NEGATIVE Urine Nitrite (NEGATIVE) NEGATIVE Urine Bilirubin (NEGATIVE) NEGATIVE Urine Urobilinogen (0.2 - 1.0 EU/dL) 0.2 Ur Leukocyte Esterase (NEGATIVE) NEGATIVE Urine RBC (0 - 1 rbc/hpf) 0-1 Urine WBC (0 - 1 wbc/hpf) 0-1 Ur Epithelial Cells (0 - 5 EPI/hpf) 0-1 Urine Bacteria (NONE SEEN) NONE SEEN Urine Glucose (NEGATIVE) NEGATIVE Urine Comment CULT NOT INDICATED 09/22 0949 Chemistry Lactic Acid (0.4 - 2.0 mmol/L) 0.7 Microbiology Date/Time Procedure - Status Source Growth 09/22 1000 Blood Culture - RECD BLOOD 09/22 0949 Blood Culture - RECD BLOOD 09/22 0745 Viral Culture - RECD CSF 09/22 0744 CSF Culture - RES CSF 09/22 0744 Gram Stain - RES CSF Assessment and Plan Problem List 1. Meningitis, aseptic Plan Patient is a weeklong history of waxing and waning headache with neck pain. Patient's most excruciating headache/neck pain was this Thursday and it has been there ever since Patient not seen to have any sort of rash Mild elevation of white blood cell count Patient presented today spinal tap done which showed elevated protein and white blood cells. No evidence of bacteria Currently patient is being managed as aseptic meningitis with the most likely etiology being viral Patient has no evidence of recent drug or substance use which may be leading to aseptic meningitis Patient has a sick contact of his child which is suffering from an ear infection at the moment Billy viral analysis sent to outside lab We'll prophylactically treat patient with ceftriaxone for bacterial meningitis We'll await for Billy viral cultures We'll obtain LFTs CBC CMP daily Pain control via antecedents, Tylenol, Dilaudid [employer] 2. Migraines Plan Patient has a history of migraines secondary to obstructive sleep apnea It has since relieved after using CPAP We'll continue with CPAP at night Pain control as after mentioned before
--- NOTE | 2016-09-22 17:23 | NUR ---
Vancomycin dosing - Meningitis S/O Vancomycin for r/o meningitis. Lactate 0.7. CSF culture pending. Chemistries unremarkable. WBC 11.8, Neutrophil 68%. Temp 98.7. A/P Vancomycin 2gm load then 1.5g q8h with trough before 4th dose 09/23 at 1730. Will continue to follow.
--- NOTE | 2016-09-22 21:59 | NUR ---
PT ALERT AND ORIENTED, COOPERATIVE WITH CARE. NO DISTRESS NOTED. PT ABLE TO MAKE NEEDS KNOWN. PT DENIES ANY CHEST PAIN, SOB, NAUSEA, AND VOMITING. PT C/O SILVA, PAIN 3/10. PT IS ON A DILAUDID RECEIVING OPERATOR, WITH POSITIVE RESULTS. VSS. IV INTACT IN THE RAC WITH IVF INFUSING PER MD ORDER. RT ASSIST WITH SETTING PT UP ON CPAP. RN ASKED MD IF HE WAS GOING TO INSPECT PT FOR TICK BITES, MD STATED NOT TONIGHT. PT GIVEN FRESH ICE WATER. BED IN LOWEST POSITION, CALL LIGHT IN REACH WC.
[2016-09-23] VITALS (23 sets, daily range): BP systolic 116–165; BP diastolic 8–106
--- NOTE | 2016-09-23 10:41 | ED MED RECONCILIATION SUMMARY ---
Patient: STACY FABIAN Medication Reconciliation Report [facility] VisitID: [id number] [place] [address] 31y, M Registration Date/Time: 09/22/2016 Weight: 131.5 kg Height/Length: 72 in. BMI: 39.4 ALLERGIES: No Known Drug Allergy The patient's Home Medications are listed below: NONE. The source(s) of the original Home Medication information: patient The following Medications were given to the patient in the Emergency Department: Zofran ODT [PO] PO 4 mg, administered: 09/22/2016 1:42:00 AM IV NS IV Fluids bolus 0, then 1000 mL/hr, administered: 09/22/2016 2:13:00 AM Zofran [IVP] IVP 4 mg, administered: 09/22/2016 2:15:00 AM Dilaudid [IVP] IVP 1 mg, administered: 09/22/2016 2:18:00 AM Metoprolol [IVP] IVP 2.5 mg, administered: 09/22/2016 3:36:00 AM Dilaudid [IVP] IVP 0.5 mg, administered: 09/22/2016 3:42:00 AM Metoprolol [PO] PO 50 mg, administered: 09/22/2016 3:56:00 AM Dilaudid [IVP] IVP 0.5 mg, administered: 09/22/2016 4:01:00 AM Toradol [IVP] IVP 30 mg, administered: 09/22/2016 4:17:00 AM Dilaudid [IVP] IVP 0.5 mg, administered: 09/22/2016 4:19:00 AM Dilaudid [IVP] IVP 0.5 mg, administered: 09/22/2016 5:24:00 AM Dilaudid [IVP] IVP 1 mg, administered: 09/22/2016 6:55:00 AM Dilaudid [IVP] IVP 1 mg, administered: 09/22/2016 9:48:00 AM Ceftriaxone [IVPB] IVPB bolus 0, then 2 gm 150 mL/hr, administered: 09/22/2016 9:49:00 AM Zofran [IVP] IVP 4 mg, administered: 09/22/2016 11:54:00 AM The following Medications were prescribed to the patient: None.
--- NOTE | 2016-09-23 10:41 | ED MED RECONCILIATION SUMMARY ---
Patient: STACY FABIAN Medication Reconciliation Report [facility] VisitID: [id number] [place] [address] 31y, M Registration Date/Time: 09/22/2016 Weight: 131.5 kg Height/Length: 72 in. BMI: 39.4 ALLERGIES: No Known Drug Allergy The patient's Home Medications are listed below: NONE. The source(s) of the original Home Medication information: patient The following Medications were given to the patient in the Emergency Department: Zofran ODT [PO] PO 4 mg, administered: 09/22/2016 1:42:00 AM IV NS IV Fluids bolus 0, then 1000 mL/hr, administered: 09/22/2016 2:13:00 AM Zofran [IVP] IVP 4 mg, administered: 09/22/2016 2:15:00 AM Dilaudid [IVP] IVP 1 mg, administered: 09/22/2016 2:18:00 AM Metoprolol [IVP] IVP 2.5 mg, administered: 09/22/2016 3:36:00 AM Dilaudid [IVP] IVP 0.5 mg, administered: 09/22/2016 3:42:00 AM Metoprolol [PO] PO 50 mg, administered: 09/22/2016 3:56:00 AM Dilaudid [IVP] IVP 0.5 mg, administered: 09/22/2016 4:01:00 AM Toradol [IVP] IVP 30 mg, administered: 09/22/2016 4:17:00 AM Dilaudid [IVP] IVP 0.5 mg, administered: 09/22/2016 4:19:00 AM Dilaudid [IVP] IVP 0.5 mg, administered: 09/22/2016 5:24:00 AM Dilaudid [IVP] IVP 1 mg, administered: 09/22/2016 6:55:00 AM Dilaudid [IVP] IVP 1 mg, administered: 09/22/2016 9:48:00 AM Ceftriaxone [IVPB] IVPB bolus 0, then 2 gm 150 mL/hr, administered: 09/22/2016 9:49:00 AM Zofran [IVP] IVP 4 mg, administered: 09/22/2016 11:54:00 AM The following Medications were prescribed to the patient: None.
--- NOTE | 2016-09-23 10:41 | ED DISCHARGE INSTRUCTIONS ---
Patient: STACY FABIAN General Instructions [facility] VisitID: [id number] [address] [place] [address] 31y, M Registration Date/Time: 09/22/2016 Meningitis. (Electronically signed by Jairo Faulkner MD 09/23/2016 10:41)
--- NOTE | 2016-09-23 10:41 | ED MAR SUMMARY ---
..... Medication Administration Record [facility] [address] [place] [address] Patient: STACY FABIAN Visit ID: [id number] 31y, M Weight: 131.5 kg Height/Length: 72 in BMI: 39.4 ALLERGIES: No Known Drug Allergy Given 01:42 09/22/2016 Valeriy Mejia R.N. Medication Administered: ZOFRAN ODT [PO] (ONDANSETRON), Dose: 4 mg PO. Medication Ordered: Zofran ODT PO 4 mg (NOW). Start 02:13 09/22/2016 Valeriy Mejia R.N., Stop 02:58 09/22/2016 Jesse Rodríguez R.N. Medication Administered: IV NS (SALINE), Dose: IV Fluids over 30 minute(s), Rate: 1000 mL/hr, Dispensed: 1000 mL bag, Site: #1 right AC. Medication Ordered: IV NS : initial bolus 500 mL (1000 mL/hr), then 125 mL/hr for 4h (NOW); Urgent. Given 02:15 09/22/2016 Valeriy Mejia R.NReilly Medication Administered: ZOFRAN [IVP] (ONDANSETRON HCL), Dose: 4 mg IVP over 2 minute(s), Site: #1 right AC. Medication Ordered: Zofran IV 4 mg (NOW). Given 02:18 09/22/2016 Valeriy Mejia R.N. Medication Administered: DILAUDID [IVP] (HYDROMORPHONE HCL PF), Dose: 1 mg IVP over 2 minute(s), Site: #1 right AC. Medication Ordered: Dilaudid IV 1 mg (HIGH ALERT MEDICATION, NOW). Given 03:36 09/22/2016 Valeriy Mejia R.N. Medication Administered: METOPROLOL [IVP] (METOPROLOL TARTRATE), Dose: 2.5 mg IVP over 3 minute(s), Site: #1 right AC. Medication Ordered: Metoprolol IV 2.5 mg (HIGH ALERT MEDICATION, NOW). Given 03:42 09/22/2016 Valeriy Mejia R.N. Medication Administered: DILAUDID [IVP] (HYDROMORPHONE HCL PF), Dose: 0.5 mg IVP over 2 minute(s), Site: #1 right AC. Medication Ordered: Dilaudid IV 0.5 mg (NOW). Given 03:56 09/22/2016 Valeriy Mejia R.N. Medication Administered: METOPROLOL [PO], Dose: 50 mg PO. Medication Ordered: Metoprolol PO 50 mg (HIGH ALERT MEDICATION, NOW). Given 04:01 09/22/2016 Valeriy Mejia R.N. Medication Administered: DILAUDID [IVP] (HYDROMORPHONE HCL PF), Dose: 0.5 mg IVP over 2 minute(s), Site: #1 right AC. Medication Ordered: Dilaudid IV 0.5 mg (NOW). Given 04:17 09/22/2016 Valeriy Mejia R.N. Medication Administered: TORADOL [IVP], Dose: 30 mg IVP over 2 minute(s), Site: #1 right AC. Medication Ordered: Toradol IV 30 mg (NOW). Given 04:19 09/22/2016 Valeriy Mejia R.N. Medication Administered: DILAUDID [IVP] (HYDROMORPHONE HCL PF), Dose: 0.5 mg IVP over 2 minute(s), Site: #1 right AC. Medication Ordered: Dilaudid IV 0.5 mg (NOW). Given 05:24 09/22/2016 Valeriy Mejia R.NReilly Medication Administered: DILAUDID [IVP] (HYDROMORPHONE HCL PF), Dose: 0.5 mg IVP over 2 minute(s), Site: #1 right AC. Medication Ordered: Dilaudid IV 0.5 mg (NOW). Given 06:55 09/22/2016 Valeriy Mejia R.N. Medication Administered: DILAUDID [IVP] (HYDROMORPHONE HCL PF), Dose: 1 mg IVP over 2 minute(s), Site: #1 right AC. Medication Ordered: Dilaudid IV 1 mg (NOW). Given 09:48 09/22/2016 Jesse Rodríguez R.N. Medication Administered: DILAUDID [IVP] (HYDROMORPHONE HCL PF), Dose: 1 mg IVP over 2 minute(s), Site: #1 right AC. Medication Ordered: Dilaudid IV 1 mg (NOW). Start 09:49 09/22/2016 Jesse Rodríguez RReillyN., Stop 10:40 09/22/2016 Jesse Rodríguez R.N. Medication Administered: CEFTRIAXONE [IVPB], Dose: 2 gm IVPB over 2 minute(s), Rate: 150 mL/hr, Dispensed: 50 mL bag, Site: #1 right AC. Medication Ordered: Ceftriaxone IV 2 gm/50mL (NOW). Given 11:54 09/22/2016 Julia Tate R.N. Medication Administered: ZOFRAN [IVP] (ONDANSETRON HCL), Dose: 4 mg IVP over 2 minute(s), Site: #1 right AC. Medication Ordered: Zofran IV 4 mg (NOW).
--- NOTE | 2016-09-23 10:41 | ED MAR SUMMARY ---
..... Medication Administration Record [facility] [address] [place] [address] Patient: STACY FABIAN Visit ID: [id number] 31y, M Weight: 131.5 kg Height/Length: 72 in BMI: 39.4 ALLERGIES: No Known Drug Allergy Given 01:42 09/22/2016 Valeriy Mejia R.N. Medication Administered: ZOFRAN ODT [PO] (ONDANSETRON), Dose: 4 mg PO. Medication Ordered: Zofran ODT PO 4 mg (NOW). Start 02:13 09/22/2016 Valeriy Mejia R.N., Stop 02:58 09/22/2016 Jesse Rodríguez R.N. Medication Administered: IV NS (SALINE), Dose: IV Fluids over 30 minute(s), Rate: 1000 mL/hr, Dispensed: 1000 mL bag, Site: #1 right AC. Medication Ordered: IV NS : initial bolus 500 mL (1000 mL/hr), then 125 mL/hr for 4h (NOW); Urgent. Given 02:15 09/22/2016 Valeriy Mejia R.NReilly Medication Administered: ZOFRAN [IVP] (ONDANSETRON HCL), Dose: 4 mg IVP over 2 minute(s), Site: #1 right AC. Medication Ordered: Zofran IV 4 mg (NOW). Given 02:18 09/22/2016 Valeriy Mejia R.N. Medication Administered: DILAUDID [IVP] (HYDROMORPHONE HCL PF), Dose: 1 mg IVP over 2 minute(s), Site: #1 right AC. Medication Ordered: Dilaudid IV 1 mg (HIGH ALERT MEDICATION, NOW). Given 03:36 09/22/2016 Valeriy Mejia R.N. Medication Administered: METOPROLOL [IVP] (METOPROLOL TARTRATE), Dose: 2.5 mg IVP over 3 minute(s), Site: #1 right AC. Medication Ordered: Metoprolol IV 2.5 mg (HIGH ALERT MEDICATION, NOW). Given 03:42 09/22/2016 Valeriy Mejia R.N. Medication Administered: DILAUDID [IVP] (HYDROMORPHONE HCL PF), Dose: 0.5 mg IVP over 2 minute(s), Site: #1 right AC. Medication Ordered: Dilaudid IV 0.5 mg (NOW). Given 03:56 09/22/2016 Valeriy Mejia R.N. Medication Administered: METOPROLOL [PO], Dose: 50 mg PO. Medication Ordered: Metoprolol PO 50 mg (HIGH ALERT MEDICATION, NOW). Given 04:01 09/22/2016 Valeriy Mejia R.N. Medication Administered: DILAUDID [IVP] (HYDROMORPHONE HCL PF), Dose: 0.5 mg IVP over 2 minute(s), Site: #1 right AC. Medication Ordered: Dilaudid IV 0.5 mg (NOW). Given 04:17 09/22/2016 Valeriy Mejia R.N. Medication Administered: TORADOL [IVP], Dose: 30 mg IVP over 2 minute(s), Site: #1 right AC. Medication Ordered: Toradol IV 30 mg (NOW). Given 04:19 09/22/2016 Valeriy Mejia R.N. Medication Administered: DILAUDID [IVP] (HYDROMORPHONE HCL PF), Dose: 0.5 mg IVP over 2 minute(s), Site: #1 right AC. Medication Ordered: Dilaudid IV 0.5 mg (NOW). Given 05:24 09/22/2016 Valeriy Mejia R.NReilly Medication Administered: DILAUDID [IVP] (HYDROMORPHONE HCL PF), Dose: 0.5 mg IVP over 2 minute(s), Site: #1 right AC. Medication Ordered: Dilaudid IV 0.5 mg (NOW). Given 06:55 09/22/2016 Valeriy Mejia R.N. Medication Administered: DILAUDID [IVP] (HYDROMORPHONE HCL PF), Dose: 1 mg IVP over 2 minute(s), Site: #1 right AC. Medication Ordered: Dilaudid IV 1 mg (NOW). Given 09:48 09/22/2016 Jesse Rodríguez R.N. Medication Administered: DILAUDID [IVP] (HYDROMORPHONE HCL PF), Dose: 1 mg IVP over 2 minute(s), Site: #1 right AC. Medication Ordered: Dilaudid IV 1 mg (NOW). Start 09:49 09/22/2016 Jesse Rodríguez RReillyN., Stop 10:40 09/22/2016 Jesse Rodríguez R.N. Medication Administered: CEFTRIAXONE [IVPB], Dose: 2 gm IVPB over 2 minute(s), Rate: 150 mL/hr, Dispensed: 50 mL bag, Site: #1 right AC. Medication Ordered: Ceftriaxone IV 2 gm/50mL (NOW). Given 11:54 09/22/2016 Julia Tate R.N. Medication Administered: ZOFRAN [IVP] (ONDANSETRON HCL), Dose: 4 mg IVP over 2 minute(s), Site: #1 right AC. Medication Ordered: Zofran IV 4 mg (NOW).
--- NOTE | 2016-09-23 10:41 | ED DISCHARGE INSTRUCTIONS ---
Patient: STACY FABIAN General Instructions [facility] VisitID: [id number] [address] [place] [address] 31y, M Registration Date/Time: 09/22/2016 Meningitis. (Electronically signed by Jairo Faulkner MD 09/23/2016 10:41)
--- NOTE | 2016-09-23 14:15 | NUR ---
NUTRITION NOTE: Pt admitted with dx/o meningitis, pmh of migraine headaches and obstruction sleep apnea (w/ CPAP tx). Pt appetite improving since admit: ~22%, 80%, 100% po intake respectively. Pt had some issues with swallowing after admission 2/2 neck pain but now has resolved with pain management per nsg. Rec continue general diet, RD to follow up with complete assessment per protocol.
--- NOTE | 2016-09-23 15:00 | Progress Note ---
Subjective General Patient seen and examined. Patient had no acute events overnight. Patient is doing better compared to yesterday. Patient's headaches are less frequent and less intense than before. As of yet no results are available on microbiology Constitutional Weakness. Denies: Fever, Chills, Sweats, Malaise, Other. Eyes Denies: Pain, Vision Change, Conjunctival Inflammation, Eyelid Inflammation, Redness, Other. ENT Denies: Ear Pain, Ear Discharge, Nose Pain, Nasal Discharge, Nasal Congestion, Mouth Pain, Mouth Swelling, Throat Pain, Throat Swelling, Other. Respiratory Denies: Cough, Dry, SOB w/exertion, Wheezing, Hemoptysis, Pleuritic Pain, Sputum , Other. Cardiovascular Denies: Chest Pain, Palpitations, Orthopnea, PND, Edema, Light-headedness, Other. Gastrointestinal Nausea. Denies: Vomiting, Abdominal Pain, Diarrhea, Constipation, Melena, Hematochezia, Other. Genitourinary Denies: Dysuria, Frequency, Incontinence, Hematuria, Retention, Other. Musculoskeletal Denies: Neck Pain, Shoulder Pain, Arm Pain, Back Pain, Hand Pain, Leg Pain, Foot Pain, Other. Skin Denies: Rash, Lesions, Jaundice, Bruising, Other. Neurological Other (headache, light sensitivity ). Denies: Weakness, Numbness, Incoordination, Change in speech, Confusion, Seizures. Physical Exam Vital Signs / I&Os Vital Signs Date Time Temp Pulse Resp B/P Pulse O2 O2 Flow FiO2 Ox Delivery Rate 09/23 1400 98.1 74 18 139/87 98 3.0 09/23 1338 143/88 09/23 1337 98.1 72 15 98 Nasal 3.0 Cannula 09/23 1200 98.2 81 14 128/80 98 Nasal 3.0 Cannula 09/23 1147 3.0 09/23 1051 62 14 137/74 94 Nasal 3.0 Cannula 09/23 1001 67 14 96 3.0 09/23 1000 82 20 97 Nasal 3.0 Cannula 09/23 0921 98.2 09/23 0900 98.2 77 18 142/78 97 Nasal 3.0 Cannula 09/23 0844 Nasal 3.0 Cannula 09/23 0800 83 14 133/86 96 Nasal 3.0 Cannula 09/23 0725 85 18 99 3.0 09/23 0700 87 18 141/76 97 Nasal 3.0 Cannula 09/23 0605 69 14 124/77 94 Nasal 3.0 Cannula 09/23 0546 67 26 97 3.0 09/23 0511 68 15 141/77 95 CPAP 3.0 09/23 0420 67 14 116/66 90 CPAP 3.0 09/23 0302 71 13 136/75 91 CPAP 3.0 09/23 0204 88 14 147/95 95 CPAP 3.0 09/23 0203 98.4 09/23 0148 67 19 134/75 89 CPAP 3.0 09/23 0057 99.0 93 17 116/62 90 CPAP 3.0 09/22 2347 98 21 125/84 96 CPAP 3.0 09/22 2257 75 15 156/87 90 CPAP 3.0 09/22 2201 99.0 71 16 152/85 97 CPAP 3.0 09/22 2110 98.1 80 17 139/88 95 CPAP 3.0 09/22 2021 Nasal 2.0 Cannula 09/22 2006 97.3 66 18 143/82 97 Nasal 2.0 Cannula 09/22 1925 98.1 78 16 127/73 97 Nasal 2.0 Cannula 09/22 1827 97.5 66 16 127/69 97 Nasal 2.0 Cannula 09/22 1722 98.2 80 17 123/91 96 Nasal 2.0 Cannula 09/22 1620 97.9 76 18 115/68 98 Nasal 2.0 Cannula 09/22 1558 71 20 98 2.0 09/22 1529 Nasal 2.0 Cannula 09/22 1520 98.1 75 17 124/65 97 Nasal 2.0 Cannula 09/22 1450 99.0 82 16 132/60 98 Nasal 2.0 Cannula I&O 09/22 0800 09/22 1600 09/23 0000 Intake Total 600 1166 Output Total 900 Balance 600 266 General Appearance Alert, Oriented X3, No acute distress HEENT Normal exam, Atraumatic, PERRLA, Moist mucous membranes, CN II-XII intact , improved neck stiffness Lungs Clear to auscultation, Normal air movement Neck No JVD, No masses, No thyromegaly Cardiovascular Regular rate and rhythm, Normal S1 and S2 Abdomen Soft, No tenderness, No guarding Pelvic No masses, No tenderness Extremities No cyanosis, No clubbing, No edema, Normal pulses, No tenderness Skin No Breakdown, No Significant Lesions Neurological Normal speech, Sensation intact, Cranial nerves intact, No lateralizing signs Psych/Mental Status Mood normal LAB Results Laboratory Tests 09/23 0520 Chemistry Plasma Sodium (136 - 145 mmol/L) 139 Plasma Potassium (3.5 - 5.1 mmol/L) 4.1 Plasma Chloride (98 - 107 mmol/L) 104 CO2 (Enzymatic) (21 - 32 mmol/L) 29 BUN (7 - 18 mg/dL) 12 Creatinine (0.6 - 1.3 mg/dL) 1.1 Est GFR ( Amer) (mL/min) >60 Est GFR (Non-Af Amer) (mL/min) >60 Glucose (70 - 110 mg/dL) 104 Plasma Calcium (8.5 - 10.1 mg/dL) 8.0 Plasma Magnesium (1.8 - 2.4 mg/dL) 2.2 Total Bilirubin (0.0 - 1.0 mg/dL) 0.4 AST (15 - 37 U/L) 16 ALT (12 - 78 U/L) 46 Alkaline Phosphatase (46 - 116 U/L) 46 Total Protein (6.4 - 8.2 g/dL) 6.7 Albumin (3.3 - 5.0 g/dL) 3.8 Hematology WBC (4.5 - 11.5 K/uL) 11.3 RBC (4.50 - 5.90 M/uL) 4.82 Hgb (13.5 - 17.5 gm/dL) 13.3 Hct (41.0 - 53.0 %) 39.3 MCV (80 - 100 fL) 81 MCH (26 - 34 pg) 28 RDW (11.6 - 14.8 %) 14.2 Neut % (Auto) (50 - 75 %) 54.9 Lymph % (Auto) (25 - 40 %) 36.4 [place] % (Auto) (3 - 14 %) 6.7 Eos % (Auto) (0 - 4 %) 1.5 Baso % (Auto) (0 - 2 %) 0.5 Plt Count, EDTA (150 - 400 K/uL) 227 PUBS MCHC (31 - 37 g/dL) 34 Assessment and Plan Problem List 1. Meningitis, aseptic Plan Patient doing well overnight Microbiology has so far been negative Patient's symptoms have significantly improved Currently patient has less frequent headaches and is able to converse without much pain as compared to before We'll continue with vancomycin and ceftriaxone at current dosages We'll continue to monitor patient in CCU for the time being Will await results of viral analysis as well as culture 2. Migraines Plan Currently patient's pain is secondary to suspected meningitis Patient has no migraines the moment and his headaches are different and presentation We'll continue with periodic pain control as necessary
--- NOTE | 2016-09-23 17:15 | NUR ---
DILAUDID LOGGING CONTRACTOR D/CdAS IT WAS CAUSING PURIITIS AND WASN'T EFFECTIVE TORADOL. HAS EATEN WELL AND VOIDED WELL. MONITOR SHOWS NSR WITH NO ECTOPY. MED JUST NOW WITH TORADOL AND DILAUDID IVP FOR C/O OF SUDDEN INSET OF H/A PAIN 10/06.
--- NOTE | 2016-09-23 18:39 | NUR ---
I discussed with the patient their current medications, possible side effects, and answered questions.
--- NOTE | 2016-09-23 18:39 | NUR ---
Pharmacy Progress Note: Vancomycin Trough: 12.1 Discussion: Based upon this patient's trough level, vancomycin will be continued at 1500 mg every 8 hours. The trough is subtherapeutic but also likely pre-steady state as this is the third dose of vancomycin including the loading dose. Estimated steady state trough should be around 15-16. Trough level will be checked on 09/25/16 at 0930 if therapy is continued. Pharmacy will continue to monitor and adjust as needed.
--- NOTE | 2016-09-23 20:05 | NUR ---
PT RESTING IN BED. ALERT AND ORIENTED X3. HEADACHE PAIN AT A 1/10 - RIGHT SIDED RADIATING DOWN TO HIS BACK MID SCAPULA. NO VISION CHANGES, SLIGHT STIFF NECK - COMPLAINTS OF WHAT FEELS LIKE A "KNOT" IN HIS NECK. NO COMPLAINTS OF DIZZINESS AT THIS TIME. NO NAUSEA - TOLERATING DIET ORDERED. ROOM AIR - NO SOB. NO CHEST PAIN, NO HEART PALPITATIONS. TELE SHOWS SINUS RHYTHM - HEART RATE AT 75. RESPIRATIONS 19, O2 SATS AT 98%. IV TO RFA UNREMARKABLE - IV FLUIDS INFUSING AT 100/HR. CALL LIGHT WITHIN REACH. NO REQUESTS AT THIS TIME.
--- NOTE | 2016-09-23 20:11 | NUR ---
DR NG IN ROOM WITH PT AT THIS TIME.
[2016-09-24] VITALS (15 sets, daily range): BP systolic 109–155; BP diastolic 57–98
--- NOTE | 2016-09-24 06:14 | NUR ---
PT AWOKE THIS AM COMPLAINING OF NECK AND BACK PAIN AT A 8/10 - MEDICATED WITH IV DILAUDID, EFFECTIVE CONTROLLING NECK PAIN, PT STILL COMPLAINING OF MID BACK PAIN DESCRIBED A "DANAY HORSE" PAIN AT A 6/10. PT MEDICATED WITH IV TORADOL. ZOFRAN IV EFFECTIVE IN CONTROLLING NAUSEA. NO COMPLAINTS OF HEADACHE THIS AM, "SLIGHT" STIFFNESS TO RIGHT SIDE OF NECK, NO SENSITIVITY TO LIGHT, NO VISION CHANGES, REMAINS ALERT AND ORIENTED X3. NO FURTHER REQUESTS AT THIS TIME. CALL LIGHT WITHIN REACH.
--- NOTE | 2016-09-24 15:38 | Progress Note ---
Subjective General Patient seen and examined. Patient has no complaints overnight. Patient's overall headaches have decreased and he is feeling much better than before. Patient's hospitalization was, Vaibhav Shepherd sudden onset migraine last night. We'll send patient for MRI and MRA today to evaluate for possibility of mass, CSF leak , thrombosis, and abnormal anatomy Constitutional Denies: Fever, Chills, Sweats, Weakness, Malaise, Other. Eyes Denies: Pain, Vision Change, Conjunctival Inflammation, Eyelid Inflammation, Redness, Other. Respiratory Denies: Cough, Dry, SOB w/exertion, Wheezing, Hemoptysis, Pleuritic Pain, Sputum , Other. Cardiovascular Denies: Chest Pain, Palpitations, Orthopnea, PND, Edema, Light-headedness, Other. Gastrointestinal Denies: Nausea, Vomiting, Abdominal Pain, Diarrhea, Constipation, Melena, Hematochezia, Other. Genitourinary Denies: Dysuria, Frequency, Incontinence, Hematuria, Retention, Other. Musculoskeletal Denies: Neck Pain, Shoulder Pain, Arm Pain, Back Pain, Hand Pain, Leg Pain, Foot Pain, Other. Skin Denies: Rash, Lesions, Jaundice, Bruising, Other. Neurological Denies: Weakness, Numbness, Incoordination, Change in speech, Confusion, Seizures, Other. Physical Exam Vital Signs / I&Os Vital Signs Date Time Temp Pulse Resp B/P Pulse O2 O2 Flow FiO2 Ox Delivery Rate 09/24 1417 98.1 66 20 147/91 98 Room Air 09/24 1158 97.9 63 18 143/80 98 Room Air 0.0 09/24 1000 98.1 76 18 140/74 98 Room Air 3.0 09/24 0929 98.1 09/24 0927 76 18 150/88 99 09/24 0600 69 17 147/93 96 Room Air 09/24 0500 65 11 141/88 97 Room Air 09/24 0400 97.2 63 16 118/98 99 CPAP 09/24 0300 63 16 137/70 99 CPAP 09/24 0200 64 15 138/81 98 CPAP 09/24 0100 64 14 109/58 97 CPAP 09/24 0000 63 15 121/57 95 CPAP 09/23 2300 70 14 129/78 95 Room Air 09/23 2200 98.1 80 16 165/88 98 Room Air 09/23 2105 97.3 67 17 157/99 95 Room Air 09/23 2009 76 09/24 1999 97.3 72 16 155/89 99 09/23 1952 Room Air 09/23 1900 72 16 160/96 99 Room Air 09/23 1800 99.0 87 18 154/90 98 Nasal Cannula 09/23 1715 98.2 09/23 1700 87 18 161/106 98 09/23 1600 99.0 86 18 152/8 98 Room Air I&O 09/23 0800 09/23 1600 09/24 0000 Intake Total 2612 2040 2814 Output Total 1650 1800 1375 Balance 439 016 3174 General Appearance Alert, Oriented X3, No acute distress HEENT PERRLA, Moist mucous membranes Lungs Clear to auscultation Neck No JVD, No masses, No lymphadenopathy, 2+ carotid pulse wo bruit Cardiovascular Regular rate and rhythm, Normal S1 and S2, No murmurs, gallops, rubs Abdomen Soft, No tenderness, No guarding, No masses Extremities No edema, Normal pulses, No tenderness Skin No Breakdown Neurological Normal speech, Normal tone, Cranial nerves intact, No lateralizing signs Psych/Mental Status Mood normal Assessment and Plan Problem List 1. Meningitis, aseptic Plan Patient initially had a CSF findings suggested aseptic meningitis Currently the patient's viral cultures have been ultimately negative We'll continue with ceftriaxone and vancomycin for the time being Patient's overall demeanor is improving significantly Patient's stay was complicated by sudden onset migraine last night We'll obtain MRI MRA today We'll continue with when necessary pain control as needed 2. Migraines Plan Patient has a history of migraines in the past Patient's workup initially attributed his migraines secondary to obstructive sleep apnea Currently patient does not any prophylaxis for migraines We'll await results of MRI and MRA to put the patient on migraine prophylaxis We'll await MRI and MRA read
--- NOTE | 2016-09-24 16:02 | DIAGNOSTIC IMAGING REPORT ---
PROCEDURE: MR BRAIN WITHOUT CONTRAST INDICATION: sudden onset migraines TECHNIQUE: Sagittal T1 FLAIR; coronal T2; axial T1 FLAIR, T2-weighted FLAIR, T2 FSE, gradient echo T2, DWI and ADC sequences. COMPARISON: Head CT 09/22/2016. FINDINGS: Sulci, ventricular system and brain parenchyma are normal. No evidence of an acute CVA, hemorrhage, mass or midline shift. Normal vascular flow voids. Orbits are unremarkable. Paranasal sinuses and mastoids are clear. IMPRESSION: 1. Negative brain MRI.
--- NOTE | 2016-09-24 16:04 | DIAGNOSTIC IMAGING REPORT ---
PROCEDURE: MRA HEAD WITHOUT CONTRAST INDICATION: Seven onset headache. TECHNIQUE: Thin-cut gradient axial images with 3D MIP reconstructions in sagittal, axial, and coronal projections. COMPARISON: Comparison is made MRI brain earlier today (09/24/2016), and head CT (09/22/2016). FINDINGS: [place] and intracranial vessels are within normal limits, and there is no evidence of aneurysm or vascular malformation. There is no evidence of vascular stenosis. IMPRESSION: 1. Normal MR angiogram of the [place] and intracranial vessels.
--- NOTE | 2016-09-24 16:04 | DIAGNOSTIC IMAGING REPORT ---
PROCEDURE: MRA HEAD WITHOUT CONTRAST INDICATION: Seven onset headache. TECHNIQUE: Thin-cut gradient axial images with 3D MIP reconstructions in sagittal, axial, and coronal projections. COMPARISON: Comparison is made MRI brain earlier today (09/24/2016), and head CT (09/22/2016). FINDINGS: [place] and intracranial vessels are within normal limits, and there is no evidence of aneurysm or vascular malformation. There is no evidence of vascular stenosis. IMPRESSION: 1. Normal MR angiogram of the [place] and intracranial vessels.
--- NOTE | 2016-09-24 16:22 | NUR ---
PT HAS HAD BETTER PAIN CONTROL TODAY. MEDICATED WITH DIAZEPAM FOR NECK PAIN WITH SOME RELIEF. RATING BACK/NECK PAIN AT 2-3 AND TOLERABLE. PT WENT DOWN FOR MRI VIA WC AND IS NOW BACK TO ROOM AND RESTING. TYLENOL GIVEN FOR HEADACHE. STATUS CHANGED TO AC, TELE DC'D AND IV FLUIDS STOPPED. PT VOIDING LARGE AMOUNTS FREQUENTLY. MUCH TEACHING DONE REGARDING DIAGNOSIS, DIAGNOSTIC TESTS AND PLAN OF CARE. PT REPORTS FEELING BETTER AND IS EAGER TO GO HOME. VS Q2H AND STABLE. WCTM.
--- NOTE | 2016-09-24 22:53 | NUR ---
PT MEDICATED WITH VALIUM AND TORADOL AT 2108 FOR BACK PAIN AT A 4/10 DESCRIBED A "DANAY HORSE". NO COMPLAINTS OF NECK STIFFNESS, NO HEADACHE PAIN, NO VISION CHANGES, NO SENSITIVITY TO LIGHT. PT HAS BEEN UP TO BATHROOM - STEADY ON FEET, NO COMPLAINTS OF DIZZINESS. ALERT AND ORIENTED X3. STOOL SAMPLE COLLECTED FOR CDIF AND SENT TO LAB. PT MEDICATED WITH IMODIUM PO DUE TO COMPLAINTS OF FREQUENT [place]OO[place] STOOL THROUGH OUT THE DAY. IV UNREMARKABLE TO LFA. ROOM AIR. CPAP MACHINE IN ROOM FOR PTS USE. NO FURTHER REQUESTS AT THIS TIME. CALL LIGHT WITHIN REACH.
[2016-09-25 00:12] VITALS: BP 136/86
[2016-09-25 02:23] VITALS: BP 139/84
[2016-09-25 04:07] VITALS: BP 150/78
[2016-09-25 06:24] VITALS: BP 141/70
--- NOTE | 2016-09-25 06:29 | NUR ---
NO NOTABLE CHANGES THROUGH OUT THE NIGHT. PT SLEPT WELL. CALL LIGHT WITHIN REACH. NO REQUESTS THIS AM.
[2016-09-25 08:37] VITALS: BP 148/82
--- NOTE | 2016-09-25 10:08 | Provider's Discharge Care Plan ---
Problem, Goal, Plan Problem List 1. Meningitis, aseptic Instructions: - you most likely had viral meningitis - you are not currently contagious - no further medication or treatment is warranted - follow up with your primary care provider as needed 2. Migraines Instructions: - take amitryptaline every night to prevent migraines - if migraines recur, please go back to your primary care provider and obtain neurology referral
[2016-09-25] MEDS ORDERED: AMITRIPTYLINE H10 MG PO (10:09)
--- NOTE | 2016-09-25 10:22 | NUR ---
NUTRITION FOLLOW UP NOTE: RD here to assess, pt to d/c today, eating ~75-100% of meals/general diet. RD avail for further consult if desired.
--- NOTE | 2016-09-25 10:30 | NUR ---
0800: C/O MID BACK PAIN. DIAZAPAM GIVEN, BUT NOT EFFECTIVE. GAVE TORADOL IV. REFUSED ICE PACK AND STATED, "THE ICE PACK DOESN'T WORK." FIRST DOSE AMYTRIPTYLINE GIVEN. PT DENIES HEADACHE AT THIS TIME. 1030: IV TORADOL EFFECTIVE FOR MID BACK PAIN. WENT OVER DC INSTRUCTIONS, GAVE PRESCRIPTION AND EDUCATION ON CURRENT DIAGNOSIS. PT STATED UNDERSTANDING. ESCORTED OUT TO PRIVATE CAR HOME.
--- NOTE | 2016-09-25 14:16 | Discharge Summary ---
Discharge Summary Report Admit Date 09/22/16 Discharge Date 09/25/16 Admission Diagnosis Headaches Neck stiffness Discharge Diagnosis Aseptic meningitis Brief History Please refer to admission H&P Hospital Course Patient was admitted to the CCU. Patient was monitored for possible worsening neurological signs. Patient had no evidence of worsening infection nor did he have any evidence of worsening neurological signs. Patient was placed on ceftriaxone and vancomycin for bacterial meningitis prophylaxis. Patient additionally was a laced on adequate pain control via an [place], acetaminophen, Dilaudid ENGINEERING PROFESSOR. Patient was additionally was started on aggressive IV hydration. Patient on day 2 of admission did not have any other new findings that were not seen before. Patient was doing much better than compared to before in terms of symptomology. No results were seen in terms of viral culture and patient did not have any worsening neurological signs. Patient on day 2 towards the afternoon had a sudden onset headache which was bitemporal and distribution with radiation to the neck. Given this new onset headache was likely the patient has a migraine history with occasional recurrence. Patient had an MRI/MRA to look for any sort of intracranial abnormalities, for which nothing was seen. Patient was doing well after that initial random headache that the patient had, and the patient was not noticed to have any other further headaches since then. Given patient's presentation this morning and is his ability to ambulate without difficulty and be migraine free it was decided that the patient could be discharged home. Patient will be discharged home with migraine prophylaxis via amitriptyline he will follow up with PMD and cold to the hospital for viral culture analysis results. General Appearance Alert, Oriented X3, No acute distress HEENT PERRLA, EOMI, Mucous membran moist/pink Lungs Normal air movement Cardiovascular Normal S1, Normal S2, No murmurs, Gallops Abdomen Soft, No tenderness, No masses Skin No Breakdown, No Significant Lesions Neurological Normal speech, Normal tone, Sensation intact, Cranial nerves 3-12 NL Psych/Mental Status Mood NL Lab/Imaging Laboratory Tests 09/25 09/25 0930 1130 Toxicology Vancomycin Trough Cancelled Cancelled Microbiology Date/Time Procedure - Status Source Growth 09/24 2109 Clostridium difficile Toxin A & B - COMP STOOL 09/24 2109 Specimen Source - COMP STOOL Discharge Instructions/Meds Take meds as prescribed Follow-up with the primary care provider Be careful around people with communicable illnesses
== END 2016-09-25 10:30 | disposition home or self-care (01) | DRG 99 ==
LOC: ED SRH 01:16 → TRANS SRH 10:13 → CC SRH 12:15
PROVIDERS: ADMIT Emergency Medicine
PROC: 009U3ZX Drainage of Spinal Canal, Percutaneous Approach, Diagnostic (ICD-10-PCS; principal; 2016-09-22)
DX: G03.0 Nonpyogenic meningitis (principal); R19.7 Diarrhea, unspecified; G47.33 Obstructive sleep apnea (adult) (pediatric); G43.909 Migraine, unspecified, not intractable, without status migrainosus
CPT/HCPCS: 80222; 81344; 90004; 90065; 90074; 90100; 90112; 90134; 90309; 90616; 91583; 92031; 92070; 92235; 92502; 92530; 92610; 92653; 92720; 95029; 95030; 95059